=== PATIENT | male | born 1955 | race Caucasian/White ===

== ENCOUNTER → 2020-06-20 10:11 | Outpatient (BNVA) | payer MEDICARE, SELFPAY | PROVIDERS: PCP Internal Medicine; Visit Provider Urology | DX: N32.0 Bladder-neck obstruction (principal); R35.1 Nocturia; R39.12 Poor urinary stream | CPT/HCPCS: Q3014 ==

== ENCOUNTER → 2020-08-20 10:02 | Outpatient (BNVA) | payer MEDICARE, SELFPAY | PROVIDERS: PCP Internal Medicine; Visit Provider Urology | DX: R39.12 Poor urinary stream (principal); N32.0 Bladder-neck obstruction; R35.1 Nocturia | CPT/HCPCS: Q3014 ==

== ENCOUNTER 2020-11-14 10:37 | Outpatient (REF) | payer MEDICARE, SELFPAY ==
[2020-11-14 12:16] LABS: PSA,Total (Free>4and<10) 1.41 ng/mL (0.00-4.00)
== END 2020-11-14 10:38 | disposition home or self-care (01) ==
LOC: HO.LAB 10:37
PROVIDERS: PCP Internal Medicine; Visit Provider Urology
DX: Z12.5 Encounter for screening for malignant neoplasm of prostate (principal); N40.1 Benign prostatic hyperplasia with lower urinary tract symptoms; N32.0 Bladder-neck obstruction; N13.8 Other obstructive and reflux uropathy
CPT/HCPCS: 36415; 84153

== ENCOUNTER → 2020-11-20 10:05 | Outpatient (BNVA) | payer MEDICARE, SELFPAY | PROVIDERS: PCP Internal Medicine; Visit Provider Urology | DX: R39.12 Poor urinary stream (principal); R35.1 Nocturia; N32.0 Bladder-neck obstruction | CPT/HCPCS: 51798; 99212 ==

== ENCOUNTER → 2021-03-27 08:40 | Outpatient (BNVA) | payer MEDICARE, SELFPAY | PROVIDERS: PCP Internal Medicine; Visit Provider Urology | CPT/HCPCS: Q3014 ==

== ENCOUNTER 2021-04-28 06:22 | Day surgery (SDC) | payer MEDICARE, SELFPAY ==
[2021-04-22 11:15] VITALS: BMI 25.7
--- NOTE | 2021-04-25 12:09 | HO.ANESPROP2 ---
Documented by User: Marley Mohamud NP 04/25/21 12:09 HPI - Anesthesia Eval Consult details Narrative: 65yo M for Laser Ablation Prostate w/Green Light PMFSH Active Problems Active Problems: All Active Problems (Updated 04/22/21 @ 11:14 by Celine Omer, CLAUDETTE) Nocturia more than twice per night (Acute) Bladder outlet obstruction (Acute) Weak urinary stream (Acute) Past Medical History Medical History (Updated 04/22/21 @ 11:14 by Celine Omer, CLAUDETTE) Bladder outlet obstruction COVID-19 vaccine series completed Hx of fracture of tibia Hypothyroid Nocturia Sciatic nerve pain Tinnitus of right ear Torn rotator cuff Weak urinary stream Surgical History Surgical History (Updated 04/22/21 @ 11:11 by Celine Omer, CLAUDETTE) Hx of cholecystectomy Hx of colonoscopy Hx of hernia repair Hx of total knee replacement Social History Social History (Updated 04/22/21 @ 11:17 by Celine Omer RN) Alcohol intake: current Alcohol intake frequency: a few times a week Patient Tobacco Use Status: Former Tobacco user Quit Date: Are you DNR?: No Advance Directives: No Advance Directives Information Provided: Yes Advance Directives on File: No Meds Allergies Allergy/AdvReac Type Severity Reaction Status Date / Time No Known Allergies Allergy Verified 04/22/21 11:14 Home Medications Medication Instructions Recorded Confirmed Last Taken Type levothyroxine 50 mcg capsule 50 mcg PO DAILY 06/20/20 04/22/21 Unknown History acetaminophen 500 mg tablet 1,000 mg PO Q6H 08/20/20 04/22/21 Unknown History Ginkgo 04/22/21 Unknown History multivitamin 1 tab PO DAILY 04/22/21 04/22/21 Unknown History [id number]-cztk-jqzan-oreg-capryl 04/22/21 04/22/21 Unknown History Exam Exam Date and Time: April 25, 2021 1209 Height,Weight and Vital Signs: Height 5 ft 10.5 in Weight 82.554 kg Assessment and Plan Assessment Anesthesia Assessment: Chart Reviewed Documented by User: Deanne Campuzano MD 04/28/21 07:43 PMFSH Past Medical History Medical History (Updated 04/22/21 @ 11:14 by Celine Omer, CLAUDETTE) Bladder outlet obstruction COVID-19 vaccine series completed Hx of fracture of tibia Hypothyroid Nocturia Sciatic nerve pain Tinnitus of right ear Torn rotator cuff Weak urinary stream Family History Family history of problems with anesthesia: No Surgical History Surgical History (Updated 04/22/21 @ 11:11 by Celine Omer, CLAUDETTE) Hx of cholecystectomy Hx of colonoscopy Hx of hernia repair Hx of total knee replacement History of Problems with Anesthesia: No Social History Social History (Updated 04/22/21 @ 11:17 by Celine Omer RN) Alcohol intake: current Alcohol intake frequency: a few times a week Patient Tobacco Use Status: Former Tobacco user Quit Date: Are you DNR?: No Advance Directives: No Advance Directives Information Provided: Yes Advance Directives on File: No Meds Allergies Allergy/AdvReac Type Severity Reaction Status Date / Time No Known Allergies Allergy Verified 04/22/21 11:14 Home Medications Medication Instructions Recorded Confirmed Last Taken Type levothyroxine 50 mcg capsule 50 mcg PO DAILY 06/20/20 04/22/21 Unknown History acetaminophen 500 mg tablet 1,000 mg PO Q6H 08/20/20 04/22/21 Unknown History Ginkgo 04/22/21 Unknown History multivitamin 1 tab PO DAILY 04/22/21 04/22/21 Unknown History [id number]-[id number]-yzrah-oreg-capryl 04/22/21 04/22/21 Unknown History Exam Airway Mallampati Class: II (Caps laterally) TM Dist: >3cm Neck ROM: Full Heart: rrr Lungs: cta Assessment and Plan Assessment Anesthesia Assessment: Anesthesia Plan Discussed and Chart Reviewed Final Anesthetic Review Family History of Problems with Anesthesia: No History of Problems with Anesthesia: No NPO: Yes ASA Class: II Final Preanesthetic Review: No Changes in Pt Med Stat and Meds/Allgs Chart Reviewed Patient Risk: Intermediate Procedure Risk: Intermediate Anesthetic Plan Anesthetic Plan: GA Disposition: Standard PACU
[2021-04-28] VITALS (7 sets, daily range): BP systolic 102–127; BP diastolic 58–76; PULSE 51–68; RESP 16; TEMP 36.2–36.4; O2SAT 95–100
[2021-04-28] MEDS: Lactated Ringers 1,000 ML 100 ML IVCONT (06:46)
--- NOTE | 2021-04-28 07:38 | MHC.SHP ---
Pre-Procedural Eval Section A Date of Service: 04/28/21 The patient is an INPATIENT: No Changes since office visit: No Cold of Flu in the past 2 weeks, No New Medical Problems, No Changes in Medication and No Patient answered all questions The History & Physical has been completed within 30 days and I have reviewed it.: Yes Section B Chief Complaint: BPH Relevant Family History (Specify if Yes): No Relevant Social History: None Present Medications: see Short Stay Collaborative assessment Medical History: No relevant PMH History of Previous Operations: No relevant previous surgery Allergies: Allergies Allergy/AdvReac Type Severity Reaction Status Date / Time No Known Allergies Allergy Verified 04/22/21 11:14 Review of Systems Sugical H&P ROS: Negative: Constitution, Cardiovascular, Respiratory, Neurological, Psychiatric, Hem-Onc, Allergic/Immunologic, Gastrointestinal, Genitourinary, Musculoskeletal, Integumentary, Endocrine and Eyes/Ears/Nose/Throat Exam Surgical H&P Exam: Normal: HEENT, Normal: Heart, Normal: Lungs, Normal: Extremities, Normal: Abdomen, Normal: Skin and Normal: Neurological Plan Diagnosis/Plan: Unchanged (Greenlight laser prostatectomy) I have reviewed the history and physical and performed a pertinent physical examination on my patient. No changes have occurred unless specified.
--- NOTE | 2021-04-28 09:25 | P.OP_ITS ---
Operative Note Operative Note Date of Service: 04/28/21 Narrative: PreOperative Diagnosis: Bladder outlet obstruction Post Operative Diagnosis: Bladder outlet obstruction Procedure: GreenLight laser enucleation of the prostate Surgeon: Dr Yared Ricci Anesthesia: General Indications for procedure: History of bladder outlet obstruction. Treated with alpha-barabra and other medications. Still with symptoms. On cystoscopy in office has largemedian lobe.. Recommendation for prostate procedure with laser enucleation of prostate. It has been discussed. Focus was placed on development of retrograde examination which is a normal part of this procedure. Procedure: After informed consent was verified the patient was brought to the operating r oom and placed in a supine position. Anesthesia was administered per protocol. Patient was placed in modified dorsal lithotomy position and prepped and draped in a sterile fashion. Safety pause time-out was confirmed. Antibiotics have been given. Twenty-four Kosovan laser cystoscope was inserted per urethra. No abnormalities found the anterior posterior urethra. The bladder was filled on both ureteric orifices were seen in normal position away from our area of interest. Using a GreenLight laser settings of 80 w incisions were made at the 5 and 7 o'clock position. They were taken down and then laterally on each side. They were brought from the bladder neck down to the level of the veru. These defined the lateral aspects of the median lobe area. The median lobe was ablated and enucleated tissue removed using power settings up to 120 w. The median lobe was large and tissue required to be incised down the middle in order to release this completely. Once the median lobe area had been cleaned attention was directed to the lateral lobes. We started with the patient's left lateral lobe. Firstly the 05:00 o'clock groove was further developed. This was moved in the lateral position to undermine the tissue on the lateral side. Focus was then placed on the laser at the 1 o'clock position in developing a secondary groove down to the level of bladder fibers. The intervening tissue between these 2 grooves was removed with a combination of enucleation ablation working from the apex toward the bladder neck. A similar procedure was repeated on the patient's right-hand side. When this was completed debris and pieces of prostate removed from the bladder. Both ureteric orifices were reviewed again in shown to be patent in away from any areas of energy damage. The apical area was reviewed in any stray ooze was controlled. There was some nonspecific ooze from the prostate bed. A 22 Kosovan 30 cc balloon Pendleton catheter was placed over stylet into the bladder. Clear efflux was obtained on irrigation. 50 cc was placed in the balloon and gentle traction was placed. A snap was used to hold tension once the patient will be moved and transported. Once transportation its finish this novel be removed. A belladonna and opiate suppository was placed for postprocedure pain management. He tolerated procedure well was extubated in the operating and transferred in a stable condition to the recovery area. Total power 200 kilojoules. Laser times 30 minutes 48 seconds. Pathology: Prostate tissue Drains: Pendleton catheter
[2021-04-28] MEDS: Acetaminophen 325 MG TABLET 650 MG PO (09:52)
== END 2021-04-28 11:05 | disposition home or self-care (01) ==
PROVIDERS: PCP Internal Medicine; Visit Provider Urology
PROC: (CPT 52648; principal; 2021-04-28 08:10)
DX: N40.1 Benign prostatic hyperplasia with lower urinary tract symptoms (principal); N13.8 Other obstructive and reflux uropathy; R35.1 Nocturia; R39.12 Poor urinary stream; E03.9 Hypothyroidism, unspecified; Z79.899 Other long term (current) drug therapy; Z90.49 Acquired absence of other specified parts of digestive tract; Z87.891 Personal history of nicotine dependence
CPT/HCPCS: 52649; J1956; J2370; J2405; J3010

== ENCOUNTER → 2021-05-01 08:52 | Outpatient (BNVA) | payer MEDICARE, SELFPAY | PROVIDERS: PCP Internal Medicine; Visit Provider Urology | DX: N32.0 Bladder-neck obstruction (principal) | CPT/HCPCS: 51700; 51798 ==

== ENCOUNTER → 2021-06-20 11:36 | Outpatient (BNVA) | payer MEDICARE, SELFPAY | PROVIDERS: PCP Internal Medicine; Visit Provider Urology | DX: N32.0 Bladder-neck obstruction (principal); R39.12 Poor urinary stream; R33.9 Retention of urine, unspecified | CPT/HCPCS: 51798; 99212 ==

== ENCOUNTER 2021-12-01 11:20 | Outpatient (REF) | payer MEDICARE, SELFPAY ==
[2021-12-01 14:32] LABS: Prostate Specific Antigen 1.02 ng/mL (<0.05-4.0)
== END 2021-12-01 11:21 | disposition home or self-care (01) ==
LOC: HO.10HDL 11:20
PROVIDERS: Visit Provider Urology
DX: N40.1 Benign prostatic hyperplasia with lower urinary tract symptoms (principal); N13.8 Other obstructive and reflux uropathy; Z12.5 Encounter for screening for malignant neoplasm of prostate
CPT/HCPCS: 36415; 84153

== ENCOUNTER 2021-12-16 10:52 | Outpatient (AMB) | payer MEDICARE, SELFPAY ==
--- NOTE | 2021-12-15 14:33 | MHC.OFFVIS ---
Intake Intake Visit Reasons: 6 Month PSA(SET) Intake Note: Patient is present for PSA and PVR Follow Up Patient is currently on Finasteride and tamsulosin Post Void Residual Reports: 0ml Skid Wrapper Required: No Accompanied by: Self / Same As Patient Allergies No Known Allergies Allergy (Verified 12/02/22 15:12) HPI HPI Comments History of Present Illness Details Michelet is a pleasant male. He is a patient of Dr. Hearn. he seen for the following urologic conditions - bladder outlet obstruction - urinary retention PSA 1.0 Lower urinary tract symptom with UTI Follow-up appointment after GreenLight procedure Current visit is for - further symptom evaluation predominant obstructive Prior treatment treatment includes - alpha-barbara and finasteride - May 2021 GreenLight laser Prostate Symptom Score - 06/13 moderate Symptoms include - initial symptoms with weak stream, nocturia, incomplete bladder emptying Prior Prostate Score moderate PSA 11/11 - 1.4, 12/12 1.0 Prostate volume US 08/11 81 cc, PVR 390, 11/11 PVR 300 Testing at next visit will include - see in 6 months with PSA PFSH Medical History Bladder outlet obstruction COVID-19 vaccine series completed Hx of fracture of tibia Hypothyroid Nocturia Sciatic nerve pain Tinnitus of right ear Torn rotator cuff Weak urinary stream Surgical History Hx of cholecystectomy Hx of colonoscopy Hx of hernia repair Hx of total knee replacement Social History Household Members: Spouse Housing: House Do you presently have visiting nurse or other home services: No Alcohol intake: current Alcohol intake frequency: holidays/special occasions only Alcohol type: beer Patient Tobacco Use Status: Former Tobacco user Quit Date: Second Hand Smoke Exposure: No service: No Review of Systems Const Denies chills and Denies fever(s) Card Reports no additional complaints and Denies syncope Resp Denies cough GI Denies abdominal pain and Denies heartburn Reports as per HPI and Denies change in libido Neuro Denies syncope Psych Denies change in libido Endo Denies change in libido Physical Exam Const General: cooperative, healthy appearing, comfortable and no acute distress Orientation/consciousness: patient oriented x3 HEENT Face and sinus: Yes normal facial exam Mouth: moist mucous membranes Neck Neck: Yes normal visual inspection, Yes full ROM and Yes trachea midline Chest Chest palpation & inspection: normal inspection of the chest Resp Effort & Inspection: normal respiratory effort, able to speak in complete sentences and no respiratory distress GI Inspection: Yes normal to inspection Back/Spine/Pelvis Cervical Spine: normal cervical lordosis Thoracic/Lumbar Spine: thoracic and lumbar spine normal to inspection Skin General skin exam: no rashes or lesions noted Neuro General: patient oriented x3, gait normal, tone normal and moves all extremities Extrem General: Yes normal to inspection and Yes capillary refill normal Office Procedures Post Void Residual Post Residual Void Post Void Residual (PVR): 0 20251-Kkpc Void Residual by ultrasound Results AMB Urinalysis, Automated UA Leukoctes 0 Cal/uL Last Edit by [facility] on 12/16/21 11:07 UA Nitrite Negative Last Edit by [facility] on 12/16/21 11:07 UA Urobilinogen 0.2 mg/dL Last Edit by [facility] on 12/16/21 11:07 UA Protein 0 mg/dL Last Edit by [facility] on 12/16/21 11:07 UA pH 6.0 Last Edit by [facility] on 12/16/21 11:07 UA Blood 0 Zach/uL Last Edit by [facility] on 12/16/21 11:07 UA Specific Orange 1.025 Last Edit by [facility] on 12/16/21 11:07 UA Ketone Negative Last Edit by [facility] on 12/16/21 11:07 UA Bilirubin 0 mg/dL Last Edit by [facility] on 12/16/21 11:07 UA Glucose 0 mg/dL Last Edit by [facility] on 12/16/21 11:07 Results Reviewed Results Reviewed: Laboratory Last Values Urine pH (Auto) 6.0 12/16/21 11:06 Specific Orange (Auto) 1.025 12/16/21 11:06 Urine Protein (Auto) 0 mg/dL 12/16/21 11:06 Glucose (UA)(Auto) 0 mg/dL 12/16/21 11:06 Urine Ketones (Auto) Negative 12/16/21 11:06 Urine Blood (Auto) 0 Zach/uL 12/16/21 11:06 Urine Nitrite (Auto) Negative 12/16/21 11:06 Urine Bilirubin (Auto) 0 mg/dL 12/16/21 11:06 Urine Urobilinogen (Auto) 0.2 mg/dL 12/16/21 11:06 Leukocyte Esterase (Auto) 0 Cal/uL 12/16/21 11:06 Assessment & Plan Assessment & Plan (1) Erectile dysfunction: Code(s): N52.9 - Male erectile dysfunction, unspecified (2) Bladder outlet obstruction: Code(s): N32.0 - Bladder-neck obstruction Plan One year follow-up PVR Orders: Orders AMB Urinalysis Automated 12/16/21 Z13.9 - Encounter for screening, unspecified AMB Post Void Residual by ultrasound 12/16/21 R32 - Unspecified urinary incontinence, N32.0 - Bladder-neck obstruction Medications: New tadalafil as needed 10 mg PO ONCE PRN 30 tabs 0RF sexual activity 30 days N52.9 - Male erectile dysfunction, unspecified Patient Instructions: Imaging studies, laboratory and physical exam results were discussed and reviewed in detail. No major barriers to patient understanding were identified. An opportunity to ask questions regarding the treatment plan was provided. All questions were answered. The patient expressed understanding and agreement with the above treatment plan. The patient is aware they should contact our office by phone for worsening of their current condition or the appearance of new urologic symptoms. Compliance is encouraged with any medications and followup testing that is ordered. It is a privilege to participate in the urologic care of your patient. If you have any questions or concerns regarding treatment for the above conditions, or other urologic issues, please do not hesitate to contact me. The office telephone contact is [phone]. This note is constructed using voice recognition software. While every effort has been made to ensure accuracy graduate civil engineer errors may have been included. Yours sincerely, Dr Yared Ricci MD, [facility] - Urology Providers of Expert, Compassionate Care for the Genitourinary System Coding Level of Care Code Est Pt Level 3 (49300) Diagnoses Erectile dysfunction N52.9 Bladder outlet obstruction N32.0 CPT Codes Post Residual Void - PVR CPT Code: 70256-Whav Void Residual by ultrasound ([id number])
== END 2021-12-16 11:34 | disposition home or self-care (01) ==
LOC: HO.HUSH 10:52
PROVIDERS: PCP Internal Medicine; Visit Provider Urology
DX: N52.9 Male erectile dysfunction, unspecified (principal); N32.0 Bladder-neck obstruction
CPT/HCPCS: 99213

== ENCOUNTER → 2021-12-16 10:52 | Outpatient (BNVA) | payer MEDICARE, SELFPAY | PROVIDERS: PCP Internal Medicine; Visit Provider Urology | DX: N32.0 Bladder-neck obstruction (principal); N52.9 Male erectile dysfunction, unspecified | CPT/HCPCS: 51798; 99212 ==

== ENCOUNTER 2022-12-02 14:57 | Inpatient (IN) | payer MEDICARE, SELFPAY ==
--- NOTE | ~2022-12-02 | FL_ITS ---
EXAMINATION: XR FLUOROSCOPY WITH IMAGES CLINICAL INFORMATION: Possible fracture left hand. COMPARISON: 12/02/2022 TECHNIQUE: Fluoroscopy Supervised By: Dr. Sarah Simms. Fluoroscopy Time: 9.8 seconds. Cumulative Dose: 0.1981 mGy. DAP: 0.012 Gy-cm2. Images: 3. FINDINGS: Intraoperative imaging of the left hand performed with what appears to be manipulation of the second finger. FL/FL guidance in OR IMPRESSION: Intraoperative fluoroscopy for orthopedic procedure.
--- NOTE | ~2022-12-02 | XR_ITS ---
EXAMINATION: XR HAND, LEFT CLINICAL INFORMATION: Left hand pain and swelling for one week. COMPARISON: None available. TECHNIQUE: PA, lateral, and oblique views of the left hand. FINDINGS: Flexion of the digits limits evaluation of the phalanges. There is possible deformity in the proximal aspect of the middle phalanx of the second digit. The remainder of the digits appear intact. The metacarpals are intact with the carpal bones are normally aligned. Mild radiocarpal degenerative joint changes are seen. Moderate to severe soft tissue swelling is seen most pronounced in the second and third digits. XR/XR hand LT min 3V IMPRESSION: 1. Moderate to severe soft tissue swelling, most pronounced in the second and third digits. Possible deformity in the proximal aspect of the middle phalanx of the second digit. This could be projectional however, a nondisplaced fracture cannot be excluded. Correlate with physical exam. If pain persists or worsens, a CT scan may be needed to better evaluate these findings. 2. Mild radiocarpal degenerative joint changes suggesting osteoarthritis.
--- NOTE | 2022-12-02 15:11 | ED_ITS ---
HPI - General Adult General Chief complaint: Wound/Laceration Stated complaint: Infected hand wound Time Seen by Provider: 12/02/22 16:44 Source: patient Mode of arrival: ambulatory Limitations: no limitations History of Present Illness HPI narrative: This is a 67-year-old male history of erectile dysfunction, bladder outlet obstruction, presenting with concerns of infected left hand, patient reports 11/13/2022 patient had an accident where he cut his left hand with a table saw, at that time he had hand surgery at [facility] on November 15 by hand/plastics, he was placed on oral antibiotics X7 days, however despite this he feels as though infection is worsening, redness, pain, swelling and purulent discharge now from palm. Patient has also been utilizing occupational therapy, who saw his hand in were concerned for infection due to some purulence discharge that day saw during their examination, they sent a picture of this discharge, scented to patient's surgeon and they wanted patient evaluated in an emergency department for possible IV antibiotics. Patient denies fevers, chills, chest pain, shortness of breath, nausea, vomiting, numbness, tingling. Related Data Home Medications Medication Instructions Recorded Confirmed Ginkgo 1 tab PO DAILY 04/22/21 12/02/22 multivitamin 1 tab PO DAILY 04/22/21 12/02/22 zgtsoxz-aaog-rouig-oreg-capryl 1 tab PO DAILY 04/22/21 12/02/22 levothyroxine 50 mcg tablet 50 mcg PO DAILY 12/15/21 12/02/22 cholecalciferol (vitamin D3) 50 50 mcg PO DAILY 12/02/22 12/02/22 mcg (2,000 unit) capsule (Vitamin D3) ibuprofen 400 mg tablet 400 mg PO Q6H 12/02/22 12/02/22 omega-3s 300 wc-fxi-vto-other 1 cap PO DAILY 12/02/22 12/02/22 eoyvu4q-ybsx oil 1,000 mg capsule ([place]-3 Fish Oil) Allergies Allergy/AdvReac Type Severity Reaction Status Date / Time No Known Allergies Allergy Verified 12/02/22 15:12 Review of Systems Review of Systems: Constitutional : No Weight loss, No Fever, No Chills, No Fatigue, No Malaise ENT/Mouth : No sore throat, No Rhinorrhea Eyes: No Eye Pain, No Swelling, No Redness Cardiovascular : No Chest Pain, No SOB, No Dyspnea on Exertion, No Orthopnea, No Edema, No Palpitations Respiratory : No Cough, No Sputum, No Wheezing Gastrointestinal : No Nausea, No Vomiting, No Diarrhea, No Constipation, No abdominal Pain, No Hematochezia, No Melena Genitourinary : No Dysuria, No Urinary Frequency, No Hematuria, Musculoskeletal : No joint pain, No Myalgias, No Joint Swelling Skin : No Skin Lesions, No rash, + wound Neuro : No Weakness, No Numbness, No Dizziness, No Headache Psych : No Anxiety/Panic, No Depression All other systems reviewed and are negative Yes all other systems are reviewed and are negative [facility] Past Medical History Attestation statement: The following information was validated with the patient. Source: old records reviewed and nursing notes reviewed Medical History Bladder outlet obstruction COVID-19 vaccine series completed Hx of fracture of tibia Hypothyroid Nocturia Sciatic nerve pain Tinnitus of right ear Torn rotator cuff Weak urinary stream Surgical History Hx of cholecystectomy Hx of colonoscopy Hx of hernia repair Hx of total knee replacement Social History Social History Alcohol intake: current Alcohol intake frequency: a few times a week Patient Tobacco Use Status: Former Tobacco user Quit Date: Advance Directives Information Provided: No Physical Exam ED Vital Signs: Vital Signs - 24 hr 12/02/22 15:12 12/02/22 16:56 Temperature 97.8 F 98.0 F Pulse Rate 84 82 Respiratory Rate 16 16 Blood Pressure 132/77 135/68 Pulse Oximetry 95 98 Oxygen Delivery Method Room Air Room Air BMI result Body Mass Index 24.5 vss Appearance: Alert.? Oriented X3.? No acute distress.? Head: Normocephalic, atraumatic, no step-offs or deformities Eyes: Pupils equal, round and reactive to light.? ENT: Pharynx normal.? Neck: Normal inspection.? Neck supple.? CVS: Normal heart rate and rhythm.? Pulses normal.? Respiratory: No respiratory distress.? Breath sounds normal.? Abdomen: Soft and nontender.? Skin: Skin warm and dry.? Normal skin color.? Normal skin turgor.? + wound to left hand (iamge below) 2+ radial pulses normal cap refil to b/l UE digits. No w rist drop. Normal sensation distally. Extremities: No lower extremity edema.? No calf ttp. 5/5 strength to bilateral upper and lower extremities Back: No midline tenderness, no C-spine tenderness, full range of motion, no CVA tenderness bilaterally Neuro: Oriented X 3.? No motor deficit.? No sensory deficit. CN 2-12 intact Course Course Course Narrative: This is an RME: Additional HPI, ROS, PE not included below will be deferred to primary provider. Patient is a 67-year-old male presenting to the emergency department with infected wound to left hand. Patient injured his hand with a ta ble saw on 11/13, had surgery at [facility] on 11/15, and completed a 7-day course of antibiotics after that. Has been going to OT, went today, and was told to come to the ED for evaluation of possible infection. Denies any fevers. Reports that occupational therapist expressed purulent drainage today, sent a photo to the surgeon who referred patient to the ED. Plan: labs Reevaluation(s) Reevaluation #1: Spoke to patient's hand surgeon from [facility], recommends [facility] area and then trying to express purulence from the affected hand. States he can be reached at any time. Patient's with contact information. Patient's CBC appears to be within normal limits. Chemistry unremarkable. ESR and CRP elevated likely secondary to healing/postoperative state. X-ray of the hand ordered and shows moderate to severe soft tissue swelling most pronounced month 2nd and 3rd digits. Possible deformity of the proximal aspect of the middle phalanx of the 2nd digit which could be a nondisplaced fracture. Mild radiocarpal degenerative joint changes suggesting osteoarthritis. Patient was given vancomycin and Zosyn . Plan is for hospital admission. Hospitalist accepts admission Time: 18:17 Medical Decision Making Medical Decision Making [facility] Narrative: [id number] 67-year-old male presents with concerns of infection to left hand worsening since late October. Physical exam significant for wound to left hand appears infected, please refer to images. Likely cellulitis/infected wound. Unlikely osteomyelitis, threatened limb, gangrenous infection. No signs of flexor tenosynovitis at this time Plan at this time labs, imaging, IV antibiotics. Likely hospital admission Differential Diagnosis Differential Diagnoses: The differential diagnosis associated with the presentation includes Likely cellulitis/infected wound. Unlikely osteomyelitis, threatened limb, gangrenous infection. No signs of flexor tenosynovitis at this time Admission/Observation Consideration of admission/observation: Escalation of care including admission/observation considered Likely hospital admission Consult Healthcare Provider Management of the patient was discussed with: Hospitalist and [employer] (p atkerrie hand surgeon ) Lab Data MDM Lab Attestation statement: I reviewed the patient's lab results. 12/02/22 15:21 12/02/22 15:21 Labs: Lab Results 12/02/22 12/02/22 12/02/22 Range/Units 15:21 15:21 17:16 WBC 8.9 (4.8-10.8) X10*3/uL RBC 4.35 L (4.60-5.80) X10*6/uL Hgb 13.3 L (14.0-18.0) g/dl Hct 39.6 L (42.0-52.0) % MCV 91.0 (80.0-98.0) fL MCH 30.6 (27.0-33.0) pg MCHC 33.6 (31.0-36.0) g/dl RDW 11.9 (11.0-16.0) % Plt Count 450 H (160-400) X10*3/uL MPV 8.3 L (9.4-12.4) fL Immature Gran % (Auto) 0.3 (0.0-0.4) % Neut % (Auto) 71.9 (45-73) % Lymph % (Auto) 17.7 L (20-40) % [place] % (Auto) 8.4 (2-11) % Eos % (Auto) 0.9 (0-4) % Baso % (Auto) 0.8 (0-2) % Lymph # (Auto) 1.6 (1.2-4.9) X10*3/uL [place] # (Auto) 0.8 (0.1-1.2) X10*3/uL Eos # (Auto) 0.1 (0.0-0.4) X10*3/uL Baso # (Auto) 0.1 (0.0-0.2) X10*3/uL Abs Immat Gran (auto) 0.03 (0.00-0.03) X10*3/uL Absolute Neuts (auto) 6.4 (2.0-8.3) x10*3/uL Absolute Nucleated RBC 0.000 (0.0-0.012) X10*3/uL Nucleated RBC % (auto) 0.0 (0.0-0.2) /100WBC ESR 79 H (0-15) MM/HR Sodium 137 (135-145) mmol/L Potassium 4.1 (3.3-5.1) mmol/L Chloride 103 (96-108) mmol/L Carbon Dioxide 24 (22-29) mmol/L Anion Gap 14 (12-20) BUN 16 (9-16) mg/dL Creatinine 0.77 (0.5-1.4) mg/dL Estim Creat Clear Calc 93.4 Estimated GFR > 60 Random Glucose 91 (60-115) mg/dL Lactic Acid (0.5-2.0) mmol/L Calcium 9.9 (8.4-10.2) mg/dL C-Reactive Protein (< or = 0.50) mg/dL 12/02/22 12/02/22 Range/Units 17:16 17:16 WBC (4.8-10.8) X10*3/uL RBC (4.60-5.80) X10*6/uL Hgb (14.0-18.0) g/dl Hct (42.0-52.0) % MCV (80.0-98.0) fL MCH (27.0-33.0) pg MCHC (31.0-36.0) g/dl RDW (11.0-16.0) % Plt Count (160-400) X10*3/uL MPV (9.4-12.4) fL Immature Gran % (Auto) (0.0-0.4) % Neut % (Auto) (45-73) % Lymph % (Auto) (20-40) % [place] % (Auto) (2-11) % Eos % (Auto) (0-4) % Baso % (Auto) (0-2) % Lymph # (Auto) (1.2-4.9) X10*3/uL [place] # (Auto) (0.1-1.2) X10*3/uL Eos # (Auto) (0.0-0.4) X10*3/uL Baso # (Auto) (0.0-0.2) X10*3/uL Abs Immat Gran (auto) (0.00-0.03) X10*3/uL Absolute Neuts (auto) (2.0-8.3) x10*3/uL Absolute Nucleated RBC (0.0-0.012) X10*3/uL Nucleated RBC % (auto) (0.0-0.2) /100WBC ESR (0-15) MM/HR Sodium (135-145) mmol/L Potassium (3.3-5.1) mmol/L Chloride (96-108) mmol/L Carbon Dioxide (22-29) mmol/L Anion Gap (12-20) BUN (9-16) mg/dL Creatinine (0.5-1.4) mg/dL Estim Creat Clear Calc Estimated GFR Random Glucose (60-115) mg/dL Lactic Acid 1.6 (0.5-2.0) mmol/L Calcium (8.4-10.2) mg/dL C-Reactive Protein 3.20 H (< or = 0.50) mg/dL Independent Interpretation I performed an independent interpretation of an: Plain X-Ray (XR/XR hand LT min 3V IMPRESSION: 1. Moderate to severe soft tissue swelling, most pronounced in the second and third digits. Possible deformity in the proximal aspect of the middle phalanx of the second digit. This could be projectional however, a nondisplaced fracture cannot be excluded. Correlate) Radiology Impression Discussion of test interpretation with radiology: I have reviewed the radiologist's reading. Core Measures AMI core measures followed: Yes Measure exclusions: not indicated Critical Care Time Critical Care Time Critical Care Time: Yes Total Critical Care Time: 35 Attestation: I attest to this time spent taking care of the patient, obtaining history, physical, reviewing labs, imaging, speaking to my attending, speaking to specialist. Discharge Plan Discharge Clinical Impression: Infection of left hand Patient Disposition: Admitted As Inpatient
[2022-12-02 15:12] VITALS: BP 132/77; PULSE 84; RESP 16; TEMP 36.6; O2SAT 95; BMI 24.5
[2022-12-02 15:25] LABS: MANUAL DIFF FLAG NO
[2022-12-02 15:27] LABS: Basophils Absolute Auto 0.1 X10*3/uL (0.0-0.2); Basophils Percent Auto 0.8 % (0-2); Eosinophils Absolute Auto 0.1 X10*3/uL (0.0-0.4); Eosinophils Percent Auto 0.9 % (0-4); Hematocrit 39.6 % (42.0-52.0); Hemoglobin 13.3 g/dl (14.0-18.0); Imm Gran Abs Auto 0.03 X10*3/uL (0.00-0.03); Imm Gran Pct Auto 0.3 % (0.0-0.4); Lymphocytes Absolute Auto 1.6 X10*3/uL (1.2-4.9); Lymphocytes Percent Auto 17.7 % (20-40); Mean Corpuscular HGB Conc 33.6 g/dl (31.0-36.0); Mean Corpuscular Hemoglobin 30.6 pg (27.0-33.0); Mean Platelet Volume 8.3 fL (9.4-12.4); Monocytes Absolute Auto 0.8 X10*3/uL (0.1-1.2); Monocytes Percent Auto 8.4 % (2-11); Neutrophils Absolute Auto 6.4 x10*3/uL (2.0-8.3); Neutrophils Percent Auto 71.9 % (45-73); Platelet Count 450 X10*3/uL (160-400); Red Blood Count 4.35 X10*6/uL (4.60-5.80); Red Cell Distribution Width 11.9 % (11.0-16.0); White Blood Count 8.9 X10*3/uL (4.8-10.8)
[2022-12-02 15:59] LABS: Anion Gap 14 (12-20); Blood Urea Nitrogen 16 mg/dL (9-16); Calcium 9.9 mg/dL (8.4-10.2); Carbon Dioxide 24 mmol/L (22-29); Chloride 103 mmol/L (96-108); Creatinine Clr Calc Pharmacy 93.4; Estimated Glomerular Filt Rate > 60; Glucose Random 91 mg/dL (60-115); Potassium 4.1 mmol/L (3.3-5.1); Sodium 137 mmol/L (135-145)
[2022-12-02 16:56] VITALS: BP 135/68; PULSE 82; RESP 16; TEMP 36.7; O2SAT 98
--- NOTE | 2022-12-02 17:19 | MHC.EDTECH ---
PATIENT BLOOD DRAWN ,LACTIC ACID AND 1ST SETS OF BLOOD CULTURE DRAWN AND SENT TO LAB ,VITALS SIGN TAKEN ,PATIENT WENT TO XRAY .
[2022-12-02 17:35] LABS: Lactic Acid 1.6 mmol/L (0.5-2.0)
[2022-12-02 18:00] VITALS: BP 124/67; PULSE 78; RESP 16; TEMP 37.1; O2SAT 98
--- NOTE | 2022-12-02 18:00 | PHA.MEDREC ---
Pharmacy Consult ? Medication Reconciliation Pharmacy has completed the medication reconciliation. Spoke with patient and . Confirmed all his medications.
[2022-12-02 18:13] LABS: Erythrocyte Sedimentation Rate 79 MM/HR (0-15)
[2022-12-02] MEDS: Piperacillin Sodium/Tazobactam 3.375 GM in 0.9 % Sodium Chloride 50 ML IV (18:29)
[2022-12-02] MEDS: vancomycin/NS 2,000 MG/500 ML PLAST..BAG 250 MG IV (18:34)
--- NOTE | 2022-12-02 18:39 | P.HPHOSP_ITS ---
History of Present Illness Date of Service: 12/02/22 Attending physician on admission: sAhutosh Cantu Chief Complaint: Left hand reddness, swelling Pt is a 67-year-old male with a PMH significant for hypothyroidism and prostatectomy who presents to the ED with?left hand redness, swelling, and purulent drainage since earlier in the week. Patient originally injured his hand on 11/13/2021 when he cut his hand on a table saw while working at his house on [facility]. Patient initially went to an urgent care clinic but was referred to [facility] where he had hand surgery on 11/15/[address] Binu Chase ([phone]). Patient was then discharged home on 7 days of oral antibiotics. Patient states his hand was doing well up until the beginning of this week when his occupational therapist became worried about the swelling and redness. And continued to deteriorate and began seeping purulent discharge, which prompted his visit today. Patient states that his hand is slightly numb and painful, rates it a 3/10. Denies systemic symptoms: No fever, chills, nausea, vomiting. Denies chest pain/pressure, palpitations. No shortness of breath. Denies abdominal pain. In the ED patient was afebrile, and hemodynamically stable. Labs were significant for ESR 79, and C-reactive protein of 3.20. H&H stable at 13 0.3/39.6. No leukocytosis. Electrolytes WNL. Kidney function WNL. Left hand X-ray showed moderate to severe soft tissue swelling, most pronounced in the 2nd and 3rd digits with possible deformity in the proximal aspect of middle phalanx of 2nd digit, possibly suggestive of nondisplaced fracture. Emergency department spoke to patient's hand surgeon at [facility] who recommended icing the area than trying to express any purulence from the affected hand. Pt was treated with vanc and Zosyn and will be admitted to the hospital for treatment of left hand cellulitis with IV antibiotics and orthopedic consult.. Review of Systems Review of Systems: Left hand swelling, redness, purulent discharge Denies fever, chills, nausea, vomiting No chest pain/pressure, palpitations Denies abdominal pain No shortness of breath Yes all other systems are reviewed and are negative PMFSH Medical History Bladder outlet obstruction COVID-19 vaccine series completed Hx of fracture of tibia Hypothyroid Nocturia Sciatic nerve pain Tinnitus of right ear Torn rotator cuff Weak urinary stream Surgical History Hx of cholecystectomy Hx of colonoscopy Hx of hernia repair Hx of total knee replacement Social History Household Members: Spouse Housing: House Do you presently have visiting nurse or other home services: No Alcohol intake: current Alcohol intake frequency: a few times a week Alcohol type: beer Patient Tobacco Use Status: Former Tobacco user Quit Date: service: No Meds Allergies Allergy/AdvReac Type Severity Reaction Status Date / Time No Known Allergies Allergy Verified 12/02/22 15:12 Active Medications: Current Medications Vancomycin HCl (Vancomycin/Ns) 2,000 mg in 500 mls @ 250 mls/hr IV ONCE ONE Stop: 12/02/22 19:06 Last Admin: 12/02/22 18:34 Dose: 250 mls/hr Pharmacy Consult (Consult Rx Perform Med Rec) 1 each MISCELLANE ONCE PRN PRN Reason: Consult order Home Medications Medication Instructions Recorded Confirmed Last Taken Type Ginkgo 1 tab PO DAILY 04/22/21 12/02/22 Unknown History multivitamin 1 tab PO DAILY 04/22/21 12/02/22 Unknown History jugktms-oftn-cufqh-oreg-capryl 1 tab PO DAILY 04/22/21 12/02/22 Unknown History levothyroxine 50 mcg tablet 50 mcg PO DAILY 12/15/21 12/02/22 12/02/22 History cholecalciferol (vitamin D3) 50 50 mcg PO DAILY 12/02/22 12/02/22 Unknown History mcg (2,000 unit) capsule (Vitamin D3) ibuprofen 400 mg tablet 400 mg PO Q6H 12/02/22 12/02/22 12/02/22 History omega-3s 300 ky-qxq-qjm-other 1 cap PO DAILY 12/02/22 12/02/22 Unknown History gdape2x-nhdn oil 1,000 mg capsule ([place]-3 Fish Oil) Physical Exam Vital Signs and Narrative: Vital Signs: Last Vital Signs Temp 98.8 F 12/02/22 18:00 Pulse 78 12/02/22 18:00 Resp 16 12/02/22 18:00 BP 124/67 12/02/22 18:00 Pulse Ox 98 12/02/22 18:00 O2 Del Method Room Air 12/02/22 18:00 BMI result Body Mass Index 24.5 Constitutional: Alert, in no acute distress. Mental Status: Oriented to person, place and time. Eyes: Pupils are equal, round, and reactive to light. Ear, Nose, and Throat: Oropharynx clear, mucous membranes moist. Ears and nose without deformities. Trachea midline. Respiratory: Clear to auscultation bilaterally. No wheezing, rales, or rhonchi. Cardiovascular: S1, S2 regular. No murmurs, rubs, or gallops. Gastrointestinal: Abdomen soft, non-tender, non-distended. Normal bowel sounds. Neurologic: Cranial nerves II-XII are grossly intact bilaterally. No focal neurological deficits. Moves all extremities spontaneously. Skin: No rashes or lesions noted. Musculoskeletal: No cyanosis or clubbing. Extremities: No edema. Swelling, erythema, purulent discharge from the wounds on palmar aspect of left hand. See pictures below. Psychiatric: Normal mood and affect. Results Labs 12/02/22 15:21 12/02/22 15:21 Labs: Laboratory Results - last 24 hr 12/02/22 12/02/22 12/02/22 15:21 15:21 17:16 MCV 91.0 MCH 30.6 MCHC 33.6 RDW 11.9 Plt Count 450 H MPV 8.3 L Immature Gran % (Auto) 0.3 Neut % (Auto) 71.9 Lymph % (Auto) 17.7 L [place] % (Auto) 8.4 Eos % (Auto) 0.9 Baso % (Auto) 0.8 Lymph # (Auto) 1.6 [place] # (Auto) 0.8 Eos # (Auto) 0.1 Baso # (Auto) 0.1 Abs Immat Gran (auto) 0.03 Absolute Neuts (auto) 6.4 Absolute Nucleated RBC 0.000 Nucleated RBC % (auto) 0.0 ESR 79 H Anion Gap 14 Estim Creat Clear Calc 93.4 Estimated GFR > 60 Random Glucose 91 Lactic Acid Calcium 9.9 C-Reactive Protein 12/02/22 12/02/22 17:16 17:16 MCV MCH MCHC RDW Plt Count MPV Immature Gran % (Auto) Neut % (Auto) Lymph % (Auto) [place] % (Auto) Eos % (Auto) Baso % (Auto) Lymph # (Auto) [place] # (Auto) Eos # (Auto) Baso # (Auto) Abs Immat Gran (auto) Absolute Neuts (auto) Absolute Nucleated RBC Nucleated RBC % (auto) ESR Anion Gap Estim Creat Clear Calc Estimated GFR Random Glucose Lactic Acid 1.6 Calcium C-Reactive Protein 3.20 H Imaging Radiologist's Impressions: Impressions Hand X-Ray 12/02/22 17:21 IMPRESSION: 1. Moderate to severe soft tissue swelling, most pronounced in the second and third digits. Possible deformity in the proximal aspect of the middle phalanx of the second digit. This could be projectional however, a nondisplaced fracture cannot be excluded. Correlate with physical exam. If pain persists or worsens, a CT scan may be needed to better evaluate these findings. 2. Mild radiocarpal degenerative joint changes suggesting osteoarthritis. Assessment and Plan (1) Infection of left hand: Status: Acute Plan Pt is a 67-year-old male with a PMH significant for hypothyroidism and prostatectomy who presents to the ED with?left hand redness, swelling, and purulent drainage since earlier in the week. Patient originally injured his hand on 11/13/2021 when he cut his hand on a table saw while working at his house on [facility]. Patient initially went to an urgent care clinic but was referred t o [facility] where he had hand surgery on 11/15/[address] Binu Chase ([phone]). Pt will be admitted to the hospital for treatment of left hand cellulitis with IV antibiotics and orthopedic consult. Left hand cellulitis Patient s/p hand surgery at [facility] on 11/15/2022, now with swelling, erythema, purulent discharge Will be given vancomycin and Zosyn, started on 12/02/2022 Patient does not meet sepsis criteria Orthopedic consult Patient be made NPO after midnight in anticipation of possible surgical intervention tomorrow Follow cultures Hypothyroidism Continue levothyroxine Full Code Attending:?Dr. Cantu DVT Prophylaxis: Pneumatic boots Pt will require a hospitalization of at least two nights for treatment of?left hand cellulitis status post hand surgery with IV antibiotics and surgical consult possible surgical intervention. Time Spent With Patient Time: Total time managing care of this patient today ____ minutes. Quality Stroke Does the patient have a stroke diagnosis?: No VTE Prior VTE?: No VTE Risk Level:: Medical - moderate - high VTE Device Contraindication: N/A - Device Ordered VTE Drug Contraindication: Treatment Not Indicated
[2022-12-02 20:00] VITALS: BP 119/75; PULSE 73; RESP 16; TEMP 37.1; O2SAT 98
--- NOTE | 2022-12-02 20:09 | PHA.PROG ---
Admission Date/Time: December 02, 2022 19:12 Indication:SKIN Weight in k.564 kg Adjusted body weight in Kg: [place] body weight in Kg: Obesity Dosing Indication % IBW: Serum Creatinine - Last 168 Hours 12/02/22 15:21 Creatinine 0.77 Estimated CrCl and GFR - Last 168 Hours 12/02/22 15:21 Estim Creat Clear Calc 93.4 Estimated GFR > 60 Vancomycin Loading Dose: 2000MG Current Vancomycin Dosing Regimen: 1000MG Q12H Vancomycin Monitoring using AUC goal of 400 - 600 range with trough as surrogate marker: AUC 514, GRJTZX36.2 Date and Time for next Vancomycin Level to be drawn: RANDOM 12/03 @1600 Pharmacist Comments on Vancomycin Plan: Vancomycin dosing will take advantage of Flexis as a clinical decision support tool that uses Bayesian modeling to calculate individual patient's pharmacokinetic parameters and forecast the patient's drug concentration time course with the target goal AUC 24 range of 400 - 600 mg/L/hr.
--- NOTE | 2022-12-02 20:20 | MHC.EDTECH ---
patient has a tuna fish sandwich a pudding and a chirag joie for snack .
--- NOTE | 2022-12-02 20:24 | PC.NURSE ---
attempt report x1 to floor- tx'd to nursing station- no answer. keri texting rn to receive pt for report
[2022-12-02] MEDS: Ibuprofen 400 MG TABLET PO (20:35)
[2022-12-02 21:30] VITALS: BMI 24.7
[2022-12-02 21:37] VITALS: BP 145/77; PULSE 80; RESP 17; TEMP 37.1; O2SAT 98
[2022-12-03] VITALS (15 sets, daily range): BP systolic 94–140; BP diastolic 50–74; PULSE 70–95; RESP 15–20; TEMP 36.1–36.9; O2SAT 93–99
[2022-12-03] MEDS: Piperacillin Sodium/Tazobactam 3.375 GM in 0.9 % Sodium Chloride 50 ML IV ×5 (01:26→23:22)
[2022-12-03] MEDS: 0.9 % Sodium Chloride Flush 3 ML SYRINGE IVFLUSH ×3 (01:26→17:41)
[2022-12-03] MEDS: Lactated Ringers 1,000 ML 80 ML IVCONT ×2 (01:26→23:23)
[2022-12-03] MEDS: vancomycin HCL 1,000 MG in 0.9 % Sodium Chloride 250 ML 270 MG IV ×2 (05:25→17:47)
[2022-12-03] MEDS: Levothyroxine Sodium 50 MCG TABLET PO (06:44)
[2022-12-03 06:59] LABS: Hemoglobin 12.6 g/dl (14.0-18.0); Mean Corpuscular HGB Conc 34.1 g/dl (31.0-36.0); Mean Corpuscular Hemoglobin 31.2 pg (27.0-33.0); Mean Corpuscular Volume 91.6 fL (80.0-98.0); Mean Platelet Volume 8.9 fL (9.4-12.4); Platelet Count 381 X10*3/uL (160-400); Red Blood Count 4.04 X10*6/uL (4.60-5.80); Red Cell Distribution Width 11.9 % (11.0-16.0)
[2022-12-03 07:31] LABS: Creatinine Clr Calc Pharmacy 97.2; Estimated Glomerular Filt Rate > 60
[2022-12-03 07:41] LABS: Anion Gap 11 (12-20); Blood Urea Nitrogen 12 mg/dL (9-16); Calcium 9.2 mg/dL (8.4-10.2); Carbon Dioxide 24 mmol/L (22-29); Chloride 107 mmol/L (96-108); Creatinine Clr Calc Pharmacy 94.7; Estimated Glomerular Filt Rate > 60; Glucose Random 91 mg/dL (60-115); Potassium 4.3 mmol/L (3.3-5.1); Sodium 138 mmol/L (135-145)
[2022-12-03] MEDS: Ibuprofen 400 MG TABLET PO ×4 (07:57→23:22)
[2022-12-03] MEDS: Cholecalciferol (Vitamin D3) 25 MCG TABLET 50 MCG PO (07:57)
[2022-12-03] MEDS: Multivitamin TABLET 1 TAB PO (07:57)
--- NOTE | 2022-12-03 08:49 | MHC.CM.PN ---
CM met with Patient at bedside and addressed IMM with him, providing Patient with the original and placing a copy on the chart. Patient lives in a house with his /HCP and home vs home with new vna is the tentative plan. CM has initiated and will follow for dc planning. Patient is raysa lazaro'janett and his PCP is Dr. Mohamud Hearn.
--- NOTE | 2022-12-03 12:21 | P.PNIM_ITS ---
Subjective Subjective Date of Service: 12/03/22 Interval History: Seen and evaluated this morning Feels better overall Denies any fever or chills Plan for surgical intervention this afternoon No other overnight events Review of Systems Review of Systems: Yes all other systems are reviewed and are negative Physical Exam Vital Signs: Vital Signs: Last Vital Signs Temp 96.9 F 12/03/22 07:43 Pulse 70 12/03/22 07:43 Resp 20 12/03/22 07:43 BP 107/61 12/03/22 07:43 Pulse Ox 97 12/03/22 07:43 O2 Del Method Room Air 12/03/22 07:43 BMI result Body Mass Index 24.7 Const: Other: Constitutional : Awake, interactive, not in distress Neck : Normal inspection, Supple Cardiovascular : RRR, no JVP, no lower extremity edema Respiratory : good bilateral air entry, no crackles, wheezes or rhonchi Gastrointestinal: soft, lax, Normal bowel sounds, Non tender Skin : Warm, Dry, Left hand in dressing Neurological : Alert & oriented x3, No focal deficit Objective Data Active Medications Acetaminophen (Acetaminophen 325 Mg Tablet) 650 mg PO Q6H PRN PRN Reason: Pain, Mild (Pain Scale 1-3) Docusate Sodium (Docusate Sodium 100 Mg Capsule) 100 mg PO DAILY PRN PRN Reason: Constipation Lactated Ringer's (Lr) 1,000 mls @ 80 mls/hr IVCONT .[id number] [facility] Last Infusion: 12/03/22 12:19 Dose: 0 mls/hr Documented By: JESSI Piperacillin Sod/Tazobactam (Sod 3.375 gm/ Sodium Chloride) 50 mls @ 100 mls/hr IV Q6H [facility] Last Admin: 12/03/22 12:12 Dose: 100 mls/hr Documented By: JESSI Vancomycin HCl 1,000 mg/ (Sodium Chloride) 270 mls @ 270 mls/hr IV Q12H [facility] Last Infusion: 12/03/22 06:57 Dose: 0 mls/hr Documented By: DEXTER Ibuprofen (Ibuprofen 400 Mg Tablet) 400 mg PO QID [facility] Last Admin: 12/03/22 12:10 Dose: 400 mg Documented By: JESSI Levothyroxine Sodium (Levothyroxine Sodium 50 Mcg Tablet) 50 mcg PO DAILY@0600 [facility] Last Admin: 12/03/22 06:44 Dose: 50 mcg Documented By: DEXTER Multivitamins/Vitamin C (Multivitamin Tablet) 1 tab PO DAILY [facility] Last Admin: 12/03/22 07:57 Dose: 1 tab Documented By: JESSI Ondansetron HCl (Ondansetron Hcl 4 Mg/2 Ml Vial) 4 mg IVPUSH Q8H PRN PRN Reason: Nausea and Vomiting Pharmacy Consult (Consult Rx Perform Med Rec) 1 each MISCELLANE ONCE PRN PRN Reason: Consult order Pharmacy Consult (Consult Rx Vancomycin Dosing) 1 each MISCELLANE DAILY PRN PRN Reason: Consult order Sodium Chloride (0.9 % Sodium Chloride Flush 3 Ml Syringe) 3 ml IVFLUSH QSHIFT [facility] Last Admin: 12/03/22 07:58 Dose: 3 ml Documented By: JESSI Vitamin D (Cholecalciferol (Vitamin D3) 25 Mcg Tablet) 50 mcg PO DAILY [facility] Last Admin: 12/03/22 07:57 Dose: 50 mcg Documented By: JESSI Labs 12/03/22 06:15 12/03/22 06:15 Labs: Laboratory Results - last 24 hr 12/02/22 12/02/22 12/02/22 15:21 15:21 17:16 MCV 91.0 MCH 30.6 MCHC 33.6 RDW 11.9 Plt Count 450 H MPV 8.3 L Immature Gran % (Auto) 0.3 Neut % (Auto) 71.9 Lymph % (Auto) 17.7 L [place] % (Auto) 8.4 Eos % (Auto) 0.9 Baso % (Auto) 0.8 Lymph # (Auto) 1.6 [place] # (Auto) 0.8 Eos # (Auto) 0.1 Baso # (Auto) 0.1 Abs Immat Gran (auto) 0.03 Absolute Neuts (auto) 6.4 Absolute Nucleated RBC 0.000 Nucleated RBC % (auto) 0.0 ESR 79 H Anion Gap 14 Estim Creat Clear Calc 93.4 Estimated GFR > 60 Random Glucose 91 Lactic Acid Calcium 9.9 C-Reactive Protein 12/02/22 12/02/22 12/03/22 17:16 17:16 06:15 MCV 91.6 MCH 31.2 MCHC 34.1 RDW 11.9 Plt Count 381 MPV 8.9 L Immature Gran % (Auto) Neut % (Auto) Lymph % (Auto) [place] % (Auto) Eos % (Auto) Baso % (Auto) Lymph # (Auto) [place] # (Auto) Eos # (Auto) Baso # (Auto) Abs Immat Gran (auto) Absolute Neuts (auto) Absolute Nucleated RBC 0.000 Nucleated RBC % (auto) 0.0 ESR Anion Gap Estim Creat Clear Calc Estimated GFR Random Glucose Lactic Acid 1.6 Calcium C-Reactive Protein 3.20 H 12/03/22 12/03/22 06:15 06:15 MCV MCH MCHC RDW Plt Count MPV Immature Gran % (Auto) Neut % (Auto) Lymph % (Auto) [place] % (Auto) Eos % (Auto) Baso % (Auto) Lymph # (Auto) [place] # (Auto) Eos # (Auto) Baso # (Auto) Abs Immat Gran (auto) Absolute Neuts (auto) Absolute Nucleated RBC Nucleated RBC % (auto) ESR Anion Gap 11 L Estim Creat Clear Calc 94.7 97.2 Estimated GFR > 60 > 60 Random Glucose 91 Lactic Acid Calcium 9.2 D C-Reactive Protein Assessment and Plan (1) Infection of left hand: Status: Acute Plan Pt is a 67-year-old male with a PMH significant for hypothyroidism and prostatectomy who presents to the ED with?left hand redness, swelling, and purulent drainage since earlier in the week. Left hand cellulitis Not septic Continue vancomycin and Zosyn, started on 12/02/2022 Orthopedic procedure this afternoon NPO after midnight Follow cultures Follow Vanco trough Hypothyroidism Continue levothyroxine Full Code DVT Prophylaxis: Pneumatic boots Pt will require a hospitalization of at least two nights for treatment of?left hand cellulitis status post hand surgery with IV antibiotics and surgical consult possible surgical intervention. Time Spent With Patient Time: Total time managing care of this patient today ____ minutes. Quality Stroke Does the patient have a stroke diagnosis?: No VTE Prior VTE?: No VTE Risk Level:: Medical - moderate - high VTE Device Contraindication: N/A - Device Ordered VTE Drug Contraindication: Treatment Not Indicated
--- NOTE | 2022-12-03 12:53 | PC.NURSE ---
patient IV #20 to left forearm, removed and intact. pt tolerated well. new IV placed #20 right hand. pt tolerated well.
--- NOTE | 2022-12-03 13:00 | P.CONAN_ITS ---
[facility] Active Problems Active Problems: All Active Problems (Updated 12/02/22 @ 16:49 by CATRACHO Landeros) Infection of left hand (Acute) Erectile dysfunction (Acute) Nocturia more than twice per night (Acute) Bladder outlet obstruction (Acute) Weak urinary stream (Acute) Past Medical History Medical History Bladder outlet obstruction COVID-19 vaccine series completed Hx of fracture of tibia Hypothyroid Nocturia Sciatic nerve pain Tinnitus of right ear Torn rotator cuff Weak urinary stream Family History Family history of problems with anesthesia: No Surgical History Surgical History Hx of cholecystectomy Hx of colonoscopy Hx of hernia repair Hx of total knee replacement History of Problems with Anesthesia: No Social History Social History Household Members: Spouse Housing: House Do you presently have visiting nurse or other home services: No Alcohol intake: current Alcohol intake frequency: holidays/special occasions only Alcohol type: beer Patient Tobacco Use Status: Former Tobacco user Quit Date: Second Hand Smoke Exposure: No service: No Meds Allergies Allergy/AdvReac Type Severity Reaction Status Date / Time No Known Allergies Allergy Verified 12/02/22 15:12 Active Medications: Current Medications Acetaminophen (Acetaminophen 325 Mg Tablet) 650 mg PO Q6H PRN PRN Reason: Pain, Mild (Pain Scale 1-3) Docusate Sodium (Docusate Sodium 100 Mg Capsule) 100 mg PO DAILY PRN PRN Reason: Constipation Lactated Ringer's (Lr) 1,000 mls @ 80 mls/hr IVCONT .[id number] Last Infusion: 12/03/22 12:19 Dose: 0 mls/hr Piperacillin Sod/Tazobactam (Sod 3.375 gm/ Sodium Chloride) 50 mls @ 100 mls/hr IV Q6H [facility] Last Infusion: 12/03/22 12:36 Dose: 0 mls/hr Vancomycin HCl 1,000 mg/ (Sodium Chloride) 270 mls @ 270 mls/hr IV Q12H [facility] Last Infusion: 12/03/22 06:57 Dose: Infused Ibuprofen (Ibuprofen 400 Mg Tablet) 400 mg PO QID [facility] Last Admin: 12/03/22 12:10 Dose: 400 mg Levothyroxine Sodium (Levothyroxine Sodium 50 Mcg Tablet) 50 mcg PO DAILY@0600 [facility] Last Admin: 12/03/22 06:44 Dose: 50 mcg Multivitamins/Vitamin C (Multivitamin Tablet) 1 tab PO DAILY [facility] Last Admin: 12/03/22 07:57 Dose: 1 tab Ondansetron HCl (Ondansetron Hcl 4 Mg/2 Ml Vial) 4 mg IVPUSH Q8H PRN PRN Reason: Nausea and Vomiting Pharmacy Consult (Consult Rx Perform Med Rec) 1 each MISCELLANE ONCE PRN PRN Reason: Consult order Pharmacy Consult (Consult Rx Vancomycin Dosing) 1 each MISCELLANE DAILY PRN PRN Reason: Consult order Sodium Chloride (0.9 % Sodium Chloride Flush 3 Ml Syringe) 3 ml IVFLUSH QSHIFT [facility] Last Admin: 12/03/22 07:58 Dose: 3 ml Vitamin D (Cholecalciferol (Vitamin D3) 25 Mcg Tablet) 50 mcg PO DAILY [facility] Last Admin: 12/03/22 07:57 Dose: 50 mcg Home Medications Medication Instructions Recorded Confirmed Last Taken Type Ginkgo 1 tab PO DAILY 04/22/21 12/02/22 Unknown History multivitamin 1 tab PO DAILY 04/22/21 12/02/22 Unknown History hnavqtf-vqzn-zjero-oreg-capryl 1 tab PO DAILY 04/22/21 12/02/22 Unknown History levothyroxine 50 mcg tablet 50 mcg PO DAILY 12/15/21 12/02/22 12/02/22 History cholecalciferol (vitamin D3) 50 50 mcg PO DAILY 12/02/22 12/02/22 Unknown History mcg (2,000 unit) capsule (Vitamin D3) ibuprofen 400 mg tablet 400 mg PO Q6H 12/02/22 12/02/22 12/02/22 History omega-3s 300 eu-kbc-jpx-other 1 cap PO DAILY 12/02/22 12/02/22 Unknown History qhndv0c-fquf oil 1,000 mg capsule ([place]-3 Fish Oil) Exam Exam Date and Time: December 03, 2022 1300 Height,Weight and Vital Signs: Height 5 ft 10 in Weight 78.2 kg Last Vital Signs Temp 97.8 F 12/03/22 12:37 Pulse 72 12/03/22 12:37 Resp 16 12/03/22 12:37 BP 108/64 12/03/22 12:37 Pulse Ox 97 12/03/22 12:37 O2 Del Method Room Air 12/03/22 12:37 Pertinent Lab Results Pertinent Lab Results: Laboratory Tests 12/02/22 12/02/22 12/02/22 15:21 15:21 17:16 WBC 8.9 RBC 4.35 L Hgb 13.3 L Hct 39.6 L MCV 91.0 MCH 30.6 MCHC 33.6 RDW 11.9 Plt Count 450 H MPV 8.3 L Immature Gran % (Auto) 0.3 Neut % (Auto) 71.9 Lymph % (Auto) 17.7 L [place] % (Auto) 8.4 Eos % (Auto) 0.9 Baso % (Auto) 0.8 Lymph # (Auto) 1.6 [place] # (Auto) 0.8 Eos # (Auto) 0.1 Baso # (Auto) 0.1 Abs Immat Gran (auto) 0.03 Absolute Neuts (auto) 6.4 Absolute Nucleated RBC 0.000 Nucleated RBC % (auto) 0.0 ESR 79 H Sodium 137 Potassium 4.1 Chloride 103 Carbon Dioxide 24 Anion Gap 14 BUN 16 Creatinine 0.77 Estim Creat Clear Calc 93.4 Estimated GFR > 60 Random Glucose 91 Lactic Acid Calcium 9.9 C-Reactive Protein 12/02/22 12/02/22 12/03/22 17:16 17:16 06:15 WBC 8.0 RBC 4.04 L Hgb 12.6 L Hct 37.0 L MCV 91.6 MCH 31.2 MCHC 34.1 RDW 11.9 Plt Count 381 MPV 8.9 L Immature Gran % (Auto) Neut % (Auto) Lymph % (Auto) [place] % (Auto) Eos % (Auto) Baso % (Auto) Lymph # (Auto) [place] # (Auto) Eos # (Auto) Baso # (Auto) Abs Immat Gran (auto) Absolute Neuts (auto) Absolute Nucleated RBC 0.000 Nucleated RBC % (auto) 0.0 ESR Sodium Potassium Chloride Carbon Dioxide Anion Gap BUN Creatinine Estim Creat Clear Calc Estimated GFR Random Glucose Lactic Acid 1.6 Calcium C-Reactive Protein 3.20 H 12/03/22 12/03/22 06:15 06:15 WBC RBC Hgb Hct MCV MCH MCHC RDW Plt Count MPV Immature Gran % (Auto) Neut % (Auto) Lymph % (Auto) [place] % (Auto) Eos % (Auto) Baso % (Auto) Lymph # (Auto) [place] # (Auto) Eos # (Auto) Baso # (Auto) Abs Immat Gran (auto) Absolute Neuts (auto) Absolute Nucleated RBC Nucleated RBC % (auto) ESR Sodium 138 Potassium 4.3 Chloride 107 Carbon Dioxide 24 Anion Gap 11 L BUN 12 Creatinine 0.76 0.74 Estim Creat Clear Calc 94.7 97.2 Estimated GFR > 60 > 60 Random Glucose 91 Lactic Acid Calcium 9.2 D C-Reactive Protein Airway Mallampati Class: II TM Dist: >3cm Neck ROM: Full Assessment and Plan Assessment Anesthesia Assessment: Anesthesia Plan Discussed and Chart Reviewed Final Anesthetic Review Family History of Problems with Anesthesia: No History of Problems with Anesthesia: No NPO: Yes ASA Class: II Final Preanesthetic Review: No Changes in Pt Med Stat, Meds/Allgs Chart Reviewed, Consent Obtained/Reviewed and Anes Risks/Benef Reviewed Patient Risk: Low Procedure Risk: Low Anesthetic Plan Anesthetic Plan: GA Disposition: Standard PACU
--- NOTE | 2022-12-03 13:51 | PM.CNOR ---
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 There, he was taken the operating room by a plastic strained hand surgeon and underwent zone 2 flexor tendon repairs x2, digital nerve repairs with ax urgent conduits x2 and digital artery repairs x2 to the left index finger, with the same procedures being done to the left middle finger and the left ring finger. He was participating in outpatient OT and about 3 days ago may start to appreciate some increased swelling. When he was seen yesterday in OT he had significantly increased swelling and karlo purulence. He was then admitted to our hospital and we were consulted this morning. He is currently on IV vancomycin. I spoke with about the patient's injury in about the rather extensive surgery he performed on 11/15/2022. The patient and his her very happy with this doctor and will likely want to continue follow-up with him afterwards. [facility] Past Medical History Medical History Bladder outlet obstruction COVID-19 vaccine series completed Hx of fracture of tibia Hypothyroid Nocturia Sciatic nerve pain Tinnitus of right ear Torn rotator cuff Weak urinary stream Surgical History Surgical History Hx of cholecystectomy Hx of colonoscopy Hx of hernia repair Hx of total knee replacement Social History Social History Household Members: Spouse Housing: House Do you presently have visiting nurse or other home services: No Alcohol intake: current Alcohol intake frequency: holidays/special occasions only Alcohol type: beer Patient Tobacco Use Status: Former Tobacco user Quit Date: Second Hand Smoke Exposure: No service: No Meds Allergies Allergy/AdvReac Type Severity Reaction Status Date / Time No Known Allergies Allergy Verified 12/02/22 15:12 Active Medications: Current Medications Acetaminophen (Acetaminophen 325 Mg Tablet) 650 mg PO Q6H PRN PRN Reason: Pain, Mild (Pain Scale 1-3) Docusate Sodium (Docusate Sodium 100 Mg Capsule) 100 mg PO DAILY PRN PRN Reason: Constipation Fentanyl (Fentanyl Citrate/Pf 100 Mcg/2 Ml Vial) 50 mcg IVPUSH Q5M PRN; Protocol PRN Reason: Pain, Severe (Pain Scale 7-10) Lactated Ringer's (Lr) 1,000 mls @ 80 mls/hr IVCONT .[id number] [facility] Last Infusion: 12/03/22 12:19 Dose: 0 mls/hr Piperacillin Sod/Tazobactam (Sod 3.375 gm/ Sodium Chloride) 50 mls @ 100 mls/hr IV Q6H [facility] Last Infusion: 12/03/22 12:36 Dose: 0 mls/hr Vancomycin HCl 1,000 mg/ (Sodium Chloride) 270 mls @ 270 mls/hr IV Q12H [facility] Last Infusion: 12/03/22 06:57 Dose: Infused Ibuprofen (Ibuprofen 400 Mg Tablet) 400 mg PO QID [facility] Last Admin: 12/03/22 12:10 Dose: 400 mg Levothyroxine Sodium (Levothyroxine Sodium 50 Mcg Tablet) 50 mcg PO DAILY@0600 [facility] Last Admin: 12/03/22 06:44 Dose: 50 mcg Multivitamins/Vitamin C (Multivitamin Tablet) 1 tab PO DAILY [facility] Last Admin: 12/03/22 07:57 Dose: 1 tab Ondansetron HCl (Ondansetron Hcl 4 Mg/2 Ml Vial) 4 mg IVPUSH Q8H PRN PRN Reason: Nausea and Vomiting Ondansetron HCl (Ondansetron Hcl 4 Mg/2 Ml Vial) 4 mg IVPUSH ONCE PRN PRN Reason: Nausea and Vomiting Oxycodone HCl (Oxycodone Hcl Immed Release 5 Mg Tablet) 5 mg PO ONCE PRN PRN Reason: Pain, Severe (Pain Scale 7-10) Pharmacy Consult (Consult Rx Perform Med Rec) 1 each MISCELLANE ONCE PRN PRN Reason: Consult order Pharmacy Consult (Consult Rx Vancomycin Dosing) 1 each MISCELLANE DAILY PRN PRN Reason: Consult order Sodium Chloride (0.9 % Sodium Chloride Flush 3 Ml Syringe) 3 ml IVFLUSH QSHIFT [facility] Last Admin: 12/03/22 07:58 Dose: 3 ml Vitamin D (Cholecalciferol (Vitamin D3) 25 Mcg Tablet) 50 mcg PO DAILY [facility] Last Admin: 12/03/22 07:57 Dose: 50 mcg Home Medications Medication Instructions Recorded Confirmed Last Taken Type Ginkgo 1 tab PO DAILY 04/22/21 12/02/22 Unknown History multivitamin 1 tab PO DAILY 04/22/21 12/02/22 Unknown History meydups-mpyc-bmvck-oreg-capryl 1 tab PO DAILY 04/22/21 12/02/22 Unknown History levothyroxine 50 mcg tablet 50 mcg PO DAILY 12/15/21 12/02/22 12/02/22 History cholecalciferol (vitamin D3) 50 50 mcg PO DAILY 12/02/22 12/02/22 Unknown History mcg (2,000 unit) capsule (Vitamin D3) ibuprofen 400 mg tablet 400 mg PO Q6H 12/02/22 12/02/22 12/02/22 History omega-3s 300 iw-iha-cvi-other 1 cap PO DAILY 12/02/22 12/02/22 Unknown History ygcsi3z-pgag oil 1,000 mg capsule ([place]-3 Fish Oil) Physical Exam Vital Signs: Vital Signs: Last Vital Signs Temp 97.8 F 12/03/22 12:37 Pulse 72 12/03/22 12:37 Resp 16 12/03/22 12:37 BP 108/64 12/03/22 12:37 Pulse Ox 97 12/03/22 12:37 O2 Del Method Room Air 12/03/22 12:37 BMI result Body Mass Index 24.7 Extrem: Other: O:? ?patient was alert oriented and in no acute distress.? He was seen with his . ? Regarding his left hand, he has significant swelling and erythema particularly in the palmar aspect of the hand in the? ?Mid palm,A1 tammy areas and extending into the index middle and to some extent the ring fingers.? there is some creamy yellow purulence appreciated and a new wound that has shown up in the distal mid palm that the patient and his say were not part of the original injury. ? Four fingers in the thumb appear to have reasonable capillary refill, though understandably there was significant hyperemia and erythema from the infection. ? Fingers are held in a flexed position.? Sensation would not be present to the index middle and ring fingers as he had? nerve repairs x2 to each digit. Radiographs three views of the patient's left hand were reviewed by me today. They are somewhat suboptimal. I am concerned about possible fracture involving the PIP joint of the left index finger. Results Labs 12/03/22 06:15 12/03/22 06:15 Labs: Abnormal lab results 12/02/22 12/02/22 12/02/22 Range/Units 15:21 17:16 17:16 RBC 4.35 L (4.60-5.80) X10*6/uL Hgb 13.3 L (14.0-18.0) g/dl Hct 39.6 L (42.0-52.0) % Plt Count 450 H (160-400) X10*3/uL MPV 8.3 L (9.4-12.4) fL Lymph % (Auto) 17.7 L (20-40) % ESR 79 H (0-15) MM/HR Anion Gap (12-20) C-Reactive Protein 3.20 H (< or = 0.50) mg/dL 12/03/22 12/03/22 Range/Units 06:15 06:15 RBC 4.04 L (4.60-5.80) X10*6/uL Hgb 12.6 L (14.0-18.0) g/dl Hct 37.0 L (42.0-52.0) % Plt Count (160-400) X10*3/uL MPV 8.9 L (9.4-12.4) fL Lymph % (Auto) (20-40) % ESR (0-15) MM/HR Anion Gap 11 L (12-20) C-Reactive Protein (< or = 0.50) mg/dL H & H 12/02/22 12/03/22 Range/Units 15:21 06:15 Hgb 13.3 L 12.6 L (14.0-18.0) g/dl Hct 39.6 L 37.0 L (42.0-52.0) % All other labs normal. Assessment and Plan (1) Infection of left hand: Status: Acute Plan Assessment and plan: Patient With significant postoperativeleft hand infection status post: 1. Left index finger: repair of flexor tendons x2 and zone 2, and repair of to digital nerves with [employer] neurologic to is and digital arteries x2 2. Left middle finger: repair of flexor tendons x2 and zone 2, and repair of to digital nerves with [employer] neurologic to is and digital arteries x2 3. Left Ring finger: repair of flexor tendons x2 and zone 2, and repair of to digital nerves with Axo[employer] neurologic to is and digital arteries x2 date of table saw injury was 11/13/2024 on [facility] date of surgery was 11/15/2022 with an outside surgeon on [facility] again this is a for significant infection. I educated the patient and his about this condition and I am recommending surgery. The risks and benefits of operative treatment were discussed with the patient and the patient wishes to proceed with surgery. These risks include, but are not limited to risk of damage to blood vessels, nerves, tendons, infection, recurrence, incomplete relief of preoperative symptoms, persistent pain, possible need for further surgery and the risks associated with regional blocks and anesthesia. The plan is to take the patient to the operating room Today for the following procedures: 1. left hand infection I&D 2. [ ] All of the preoperative paperwork including the consent was filled out today and signed. All the patient's questions were answered. The patient understands and wishes to proceed with surgery Time Spent With Patient Time: Total time managing care of this patient today ____ minutes. Procedures Date of Service Date of Service: 12/03/22
--- NOTE | 2022-12-03 15:52 | MHC.SHP ---
Pre-Procedural Eval Section A Date of Service: 12/03/22 The patient is an INPATIENT: Yes Changes since office visit: No Cold of Flu in the past 2 weeks, No New Medical Problems, No Changes in Medication and No Patient answered all questions The History & Physical has been completed within 30 days and I have reviewed it.: Yes Section B Chief Complaint: Left Hand infection Allergies: Allergies Allergy/AdvReac Type Severity Reaction Status Date / Time No Known Allergies Allergy Verified 12/02/22 15:12 Plan I have reviewed the history and physical and performed a pertinent physical examination on my patient. No changes have occurred unless specified. Time Spent With Patient Time: Total time managing care of this patient today ____ minutes.
--- NOTE | 2022-12-03 15:53 | W.PM.OPN ---
Operative Note Operative Note Date of Service: 12/03/22 Narrative: Operative Note Narrative: Preop diagnosis: left hand infection status post - left index finger zone 2 flexor tendon repairs x2, microscopic repair of digital nerves using AxoGen tubes x 2, microscopic repair of digital arteries times 2 - left middle finger zone 2 flexor tendon repairs x2,? ?microscopic repair of digital nerves using AxoGen? tubes x 2,? ?microscopic repair of digital arteries times 2? - left ring finger zone 2 flexor tendon repairs x2,? ?microscopic repair of digital nerves using AxoGen? tubes x 2,? ?microscopic repair of digital arteries times 2? Postop diagnosis: Same Procedure: 1. I&D of left hand including mid palmar space. 2. I&D of left index finger including flexor tendon sheath 3. I and D of left middle finger including flexor tendon sheath 4. I and D of left ring finger including flexor tendon sheath at the A1 tammy Surgeon: Sarah Simms MD Anesthesia: General Anesthesia Findings: - creamy yellow purulence from mid palmar abscess and coming from flexor tendon sheaths of the index and middle fingers. - Dehiscence and loss of soft tissue coverage over the flexor tendon sheaths of the index finger and middle finger at the middle phalanx levels - spontaneous abscess drainage in line with the middle finger at the distal mid palmar crease, over the volar aspect of the proximal phalanx of the middle finger, and with hematoma and then creamy drainage from a wound on the more dorsal radial aspect of the middle finger proximal phalanx just distal to the 2nd webspace - slow cap refill to the tips of the index, middle and ring fingers at the beginning of the case and at the end of the case - possible minimally displaced fracture of the distal head of the index finger proximal phalanx Implants: none Tourniquet time: 5 minutes EBL: 5.0 ml Specimen: cultures taken of purulence x2 Drains: iodoform drains x5 Complications: None Disposition: Brought to the recovery room in stable condition Plan: -admit to floor to continue IV antibiotics. -Adjust antibiotics based on cultures. -Wound check tomorrow and remove drains x5 -possible repeat I and D, possible finger amputation on Wednesday - I spoke with the patient's original hand surgeon, Dr. Chase, and it is possible that the patient may wish to be transferred to 1 of his hospitals for continued management of these injuries. We are happy to help in any way we can. Indications: The patient is a 67-year-old man with a bad left hand infection. The patient is status post a table saw injury on 11/13/2022, that was taken to the operating room at an outside facility on 11/15/2022 for repair of zone 2 flexor tendon injuries x2, digital nerves x2 and microscopic repair of the digital arteries times 2, to 3 fingers: the left index finger, middle finger and ring finger. . The risks and benefits of operative treatment, including but not limited to risk of damage to blood vessels, nerves, tendons, infection, recurrence, persistent pain or numbness, incomplete resolution of preoperative symptoms, or need for further surgery were discussed with the patient and they wished to proceed with surgery. Procedure: Once consent was obtained patient was brought back to the operating suite and placed in the operating table in a supine position. The patient is on vancomycin already. Anesthesia was administered by the anesthesia team. A tourniquet was applied to the proximal aspect of the Left upper extremity and the limb was prepped and draped in a standard surgical fashion. The limb was elevated and the tourniquet inflated to 250 mm of mercury for a total tourniquet time of 5 minutes. After 5 minutes I dropped the tourniquet out of an abundance of caution for the vascular repairs in the left index middle and ring fingers. ?I passed the tips of tenotomy scissors into the apex of an abscess in line with the middle finger at the distal mid palmar crease.? We had some creamy yellow purulence which was cultured. I then extended this distally in a zig zag fashion with an oblique incision over the A1 tammy using a 15. Blade. I carefully dissected down into the mid palmar space using tenotomy scissors and we found some more creamy yellow purulence. The tips of the tenotomy scissors were also passed into a wound that appeared to be in apex of another abscess over the middle finger proximal phalanx just distal to the palmar digital crease. We found some creamy yellow purulence in this area. I made an oblique 2 cm incision over the index finger A1 tammy and dissected down to the flexor tendon sheath with tenotomy scissors. I made another 2 cm oblique incision over the A1 tammy of the patient's left ring finger and again dissected down to the flexor tendon sheath. I then debrided the wounds over the volar aspect of the index finger middle phalanx and proximal phalanx and over the middle phalanx of the middle finger. There was some fibrinous exudate and eschar in these areas that was carefully excised. There was some creamy yellow purulence from these wounds as well. Unfortunately the patient appears to have lost skin coverage in these areas and the flexor tendons are exposed. Interestingly, there was also a purple appearing raised wound over the dorsal radial aspect of the middle finger proximal phalanx. I did pass tenotomy scissors into this area and we immediately had a foul odor and some hematoma and creamy yellow purulence for drainage. It did have the general surgeon come in to take a look at this wound to assure that we were not looking in a more serious type of infection. The wound was vascular and bleeding, and in his opinion did not appear particularly worrisome for such a problem. There was a much smaller wound over the ulnar aspect of the ring finger near the D IP joint. This was also carefully debrided. I did not find purulence in this wound. Indeed the ring finger was much less swollen and did not appear to have evidence of flexor tenosynovitis. All wounds were copiously irrigated with normal saline. I also used a 10 mL syringe with an Angiocath to adequately fit flush from proximal to distal beneath skin bridges along the flexor tendons of the middle and ring fingers. The volar wound over the middle phalanx and proximal phalanx also communicated with the wound on the dorsal radial aspect of the proximal phalanx of the middle finger. These wounds were all copiously irrigated. I placed 5 strips of iodoform gauze in the 3 wounds over the A1 pulleys, the volar and the radial wounds over the middle finger proximal phalanx to facilitate drainage. A sterile dressing and a dorsal splint holding the fingers in some flexion were then placed. The patient appears to have tolerated the procedure well and with no complications. Patient was noted to have slow cap refill to the index middle and ring fingers at the beginning of the case and this was the same at the end of the case.
[2022-12-03] MEDS: fentaNYL citrate/PF 100 MCG/2 ML VIAL 50 MCG IVPUSH (16:30)
[2022-12-03] MEDS: Acetaminophen 325 MG TABLET 650 MG PO (16:46)
--- NOTE | 2022-12-03 18:23 | HE.PHANOTE ---
RE: vanco Level on 12/03/22 not drawn, vanco already infusing by the time I contacted chemistry and spoke to Samson. New order put in to be drawn 12/04/22 @ 1600. Renal function is stable
[2022-12-04 03:12] VITALS: BP 102/50; PULSE 78; RESP 16; TEMP 36.8; O2SAT 98
[2022-12-04] MEDS: Piperacillin Sodium/Tazobactam 3.375 GM in 0.9 % Sodium Chloride 50 ML IV ×4 (06:04→23:55)
[2022-12-04] MEDS: Levothyroxine Sodium 50 MCG TABLET PO (06:04)
[2022-12-04] MEDS: vancomycin HCL 1,000 MG in 0.9 % Sodium Chloride 250 ML 270 MG IV ×2 (06:37→17:38)
[2022-12-04 06:46] LABS: Hematocrit 34.2 % (42.0-52.0); Hemoglobin 11.4 g/dl (14.0-18.0); Mean Corpuscular HGB Conc 33.3 g/dl (31.0-36.0); Mean Corpuscular Hemoglobin 30.6 pg (27.0-33.0); Mean Corpuscular Volume 91.7 fL (80.0-98.0); Mean Platelet Volume 8.8 fL (9.4-12.4); Platelet Count 343 X10*3/uL (160-400); Red Blood Count 3.73 X10*6/uL (4.60-5.80); Red Cell Distribution Width 11.9 % (11.0-16.0); White Blood Count 6.7 X10*3/uL (4.8-10.8)
[2022-12-04 06:49] LABS: Creatinine Clr Calc Pharmacy 94.7; Estimated Glomerular Filt Rate > 60
[2022-12-04 06:52] LABS: Anion Gap 12 (12-20); Blood Urea Nitrogen 11 mg/dL (9-16); Carbon Dioxide 23 mmol/L (22-29); Chloride 109 mmol/L (96-108); Creatinine Clr Calc Pharmacy 97.2; Estimated Glomerular Filt Rate > 60; Glucose Random 93 mg/dL (60-115); Sodium 140 mmol/L (135-145)
[2022-12-04] MEDS: Ibuprofen 400 MG TABLET PO ×4 (08:06→21:36)
[2022-12-04] MEDS: Cholecalciferol (Vitamin D3) 25 MCG TABLET 50 MCG PO (08:06)
[2022-12-04] MEDS: Omeprazole 40 MG CAPSULE.DR PO (08:06)
[2022-12-04] MEDS: Multivitamin TABLET 1 TAB PO (08:06)
[2022-12-04] MEDS: Acetaminophen 325 MG TABLET 650 MG PO ×2 (08:08→17:37)
[2022-12-04 08:23] VITALS: BP 125/67; PULSE 86; RESP 20; TEMP 36.7; O2SAT 97
--- NOTE | 2022-12-04 10:07 | PM.PNORT ---
Subjective Subjective Date of Service: 12/04/22 Interval history: Postop day 1 status post: 1. I&D of left hand including mid palmar space. ?2. I&D of left index finger including flexor tendon? sheath ?3. I and D of left middle finger including flexor tendon sheath ?4. I and D of left ring finger including flexor tendon sheath at the A1 tammy No overnight events. He is resting comfortably in bed. He states he spoke with his plastic surgeon who encouraged him to stay at our hospital over the weekend and have another washout on Wednesday and if there is any further intervention that is recommended then he will continue the care i.e. amputation verses repair Physical Exam Vital Signs: Vital Signs: Last Vital Signs Temp 98.0 F 12/04/22 08:23 Pulse 86 12/04/22 08:23 Resp 20 12/04/22 08:23 BP 125/67 12/04/22 08:23 Pulse Ox 97 12/04/22 08:23 O2 Del Method Room Air 12/04/22 08:23 O2 Flow Rate 2.0 12/03/22 17:17 BMI result Body Mass Index 24.7 Const: General: cooperative, healthy appearing and no acute distress Resp: Effort & Inspection: normal respiratory effort and able to speak in complete sentences Cardio: Rate: regular rate Peripheral pulses: Peripheral pulses 2+ throughout GI: Palpation (GI): Soft to palpation Skin: General skin exam: no rashes or lesions noted Extrem: Other: Left hand has 5 iodoform drains that were pulled today. There is no active purulence drainage. Sensation is intact throughout the hand except for absence of sensation along the radial digital nerve of the middle finger and he has no sensation over the tips of the index middle and ring finger Procedures Date of Service Date of Service: 12/04/22 Progress Note: A&P Assessment and plan (1) Infection of left hand: Status: Acute Assessment and Plan: Dressing change was performed today. Iodoform packing removed and Xeroform was placed over the incisions with gauze and Andrade wrap. I encouraged elevation. His plastic surgeon would like him to work on gentle range of motion as tolerated. Continue antibiotics. The plan for right now is for him to remain in the hospital with antibiotics and to be re-evaluated on Wednesday for an I&D - I did explain to the patient he needs to be NPO after midnight on Wednesday If there is potential for amputation the patient would like to hold off on this and see his plastic surgeon to see if there is any way to salvage this. This will be discussed with Dr. Simms Time Spent With Patient Time: Total time managing care of this patient today ____ minutes. Quality Stroke Does the patient have a stroke diagnosis?: No VTE Prior VTE?: No VTE Risk Level:: Medical - moderate - high VTE Device Contraindication: N/A - Device Ordered VTE Drug Contraindication: Treatment Not Indicated
[2022-12-04 11:25] VITALS: BP 112/61; PULSE 76; RESP 20; TEMP 36.6; O2SAT 97
--- NOTE | 2022-12-04 12:56 | MHC.CM.PN ---
EMR REVIEWED, PT W/ L HAND CELLULITIS, PT WILL REMAIN INPT OVER W/E FOR IV ABX, BC AND WOUND CULTURES PENDING, NO PLAN FOR D/C AT THIS TIME, CM WILL CONT TO FOLLOW D/C NEEDS.
[2022-12-04 13:02] VITALS: O2SAT 99
--- NOTE | 2022-12-04 13:14 | P.PNIM_ITS ---
Subjective Subjective Date of Service: 12/04/22 Interval History: Seen and evaluated this morning POD 1 pain under fair control Denies any fever or chills cultures still negative No other overnight events Review of Systems Review of Systems: Yes all other systems are reviewed and are negative Physical Exam Vital Signs: Vital Signs: Last Vital Signs Temp 98 F 12/04/22 11:25 Pulse 76 12/04/22 11:25 Resp 20 12/04/22 11:25 BP 112/61 12/04/22 11:25 Pulse Ox 97 12/04/22 11:25 O2 Del Method Room Air 12/04/22 11:25 O2 Flow Rate 2.0 12/03/22 17:17 BMI result Body Mass Index 24.7 Const: Other: Constitutional : Awake, interactive, not in distress Neck : Normal inspection, Supple Cardiovascular : RRR, no JVP, no lower extremity edema Respiratory : good bilateral air entry, no crackles, wheezes or rhonchi Gastrointestinal: soft, lax, Normal bowel sounds, Non tender Skin : Warm, Dry, Left hand in dressing Neurological : Alert & oriented x3, No focal deficit Objective Data Active Medications Acetaminophen (Acetaminophen 325 Mg Tablet) 650 mg PO Q6H PRN PRN Reason: Pain, Mild (Pain Scale 1-3) Last Admin: 12/04/22 08:08 Dose: 650 mg Documented By: KRISTEN Docusate Sodium (Docusate Sodium 100 Mg Capsule) 100 mg PO DAILY PRN PRN Reason: Constipation Fentanyl (Fentanyl Citrate/Pf 100 Mcg/2 Ml Vial) 50 mcg IVPUSH Q5M PRN; Protocol PRN Reason: Pain, Severe (Pain Scale 7-10) Last Admin: 12/03/22 16:30 Dose: 50 mcg Documented By: FERD Piperacillin Sod/Tazobactam (Sod 3.375 gm/ Sodium Chloride) 50 mls @ 100 mls/hr IV Q6H [facility] Last Admin: 12/04/22 12:37 Dose: 100 mls/hr Documented By: KRISTEN Vancomycin HCl 1,000 mg/ (Sodium Chloride) 270 mls @ 270 mls/hr IV Q12H [facility] Last Infusion: 12/04/22 07:45 Dose: 0 mls/hr Documented By: KRISTEN Ibuprofen (Ibuprofen 400 Mg Tablet) 400 mg PO QID [facility] Last Admin: 12/04/22 12:40 Dose: 400 mg Documented By: KRISTEN Levothyroxine Sodium (Levothyroxine Sodium 50 Mcg Tablet) 50 mcg PO DAILY@0600 [facility] Last Admin: 12/04/22 06:04 Dose: 50 mcg Documented By: GENNA Multivitamins/Vitamin C (Multivitamin Tablet) 1 tab PO DAILY [facility] Last Admin: 12/04/22 08:06 Dose: 1 tab Documented By: KRISTEN Omeprazole (Omeprazole 40 Mg Capsule.Dr) 40 mg PO DAILY@0630 [facility] Last Admin: 12/04/22 08:06 Dose: 40 mg Documented By: KRISTEN Ondansetron HCl (Ondansetron Hcl 4 Mg/2 Ml Vial) 4 mg IVPUSH Q8H PRN PRN Reason: Nausea and Vomiting Ondansetron HCl (Ondansetron Hcl 4 Mg/2 Ml Vial) 4 mg IVPUSH ONCE PRN PRN Reason: Nausea and Vomiting Oxycodone HCl (Oxycodone Hcl Immed Release 5 Mg Tablet) 5 mg PO ONCE PRN PRN Reason: Pain, Severe (Pain Scale 7-10) Pharmacy Consult (Consult Rx Perform Med Rec) 1 each MISCELLANE ONCE PRN PRN Reason: Consult order Pharmacy Consult (Consult Rx Vancomycin Dosing) 1 each MISCELLANE DAILY PRN PRN Reason: Consult order Sodium Chloride (0.9 % Sodium Chloride Flush 3 Ml Syringe) 3 ml IVFLUSH QSHIFT [facility] Last Admin: 12/04/22 08:10 Dose: Not Given Documented By: KRISTEN Non-Admin Reason: IV Running Vitamin D (Cholecalciferol (Vitamin D3) 25 Mcg Tablet) 50 mcg PO DAILY [facility] Last Admin: 12/04/22 08:06 Dose: 50 mcg Documented By: KRISTEN Labs 12/04/22 05:59 12/04/22 05:59 Labs: Laboratory Results - last 24 hr 12/04/22 12/04/22 12/04/22 05:59 05:59 05:59 MCV 91.7 MCH 30.6 MCHC 33.3 RDW 11.9 Plt Count 343 MPV 8.8 L Absolute Nucleated RBC 0.000 Nucleated RBC % (auto) 0.0 Anion Gap 12 Estim Creat Clear Calc 97.2 94.7 Estimated GFR > 60 > 60 Random Glucose 93 Calcium 9.0 Microbiology Microbiology Results: Microbiology 12/03/22 14:25 Gram Stain - Final Hand Left Routine Culture - Preliminary Culture in progress. 12/02/22 18:19 Blood Culture - Preliminary Blood - Venous No growth after 24 hours. 12/02/22 17:16 Blood Culture - Preliminary Blood - Venous No growth after 24 hours. Assessment and Plan (1) Infection of left hand: Status: Acute Plan Pt is a 67-year-old male with a PMH significant for hypothyroidism and prostatectomy who presents to the ED with?left hand redness, swelling, and purulent drainage since earlier in the week. Left hand cellulitis and abscess post surgery 11/15 POD 1 Continue vancomycin and Zosyn, started on 12/02/2022 Orthopedic team following with a plan for repeat surgery on Wednesday Discussions with his primary surgical team by dr Sarah Simms NPO after midnight Follow cultures Follow Vanco trough Hypothyroidism Continue levothyroxine Full Code DVT Prophylaxis: Pneumatic boots Pt will require a hospitalization of overnight for treatment of?left hand c ellulitis status post hand surgery with IV antibiotics and possible surgical intervention by Wednesday Time Spent With Patient Time: Total time managing care of this patient today ____ minutes. Quality Stroke Does the patient have a stroke diagnosis?: No VTE Prior VTE?: No VTE Risk Level:: Medical - moderate - high VTE Device Contraindication: N/A - Device Ordered VTE Drug Contraindication: Treatment Not Indicated
[2022-12-04 15:15] VITALS: BP 135/72; PULSE 77; RESP 20; TEMP 36.5; O2SAT 97
[2022-12-04 16:43] LABS: Vancomycin Random 11.2 mcg/mL (15-20)
[2022-12-04] MEDS: 0.9 % Sodium Chloride Flush 3 ML SYRINGE IVFLUSH ×2 (17:41→23:55)
--- NOTE | 2022-12-04 18:20 | PC.NURSE ---
Continue on IV antibiotics per orders. Fluids dc'd this am patient with good intake. Left hand remains with dressing in place and david wrap +CSM. c/o pain 07/31 medicated with prn tylenol and scheduled ibuprofen with effect. LUE elevated with pillows. Will continue to monitor and report changes
[2022-12-04 19:18] VITALS: BP 133/71; PULSE 77; RESP 20; TEMP 36.7; O2SAT 98
[2022-12-05] VITALS (8 sets, daily range): BP systolic 116–148; BP diastolic 66–74; PULSE 72–84; RESP 17–20; TEMP 36–37; O2SAT 96–99
[2022-12-05] MEDS: Levothyroxine Sodium 50 MCG TABLET PO (05:41)
[2022-12-05] MEDS: Omeprazole 40 MG CAPSULE.DR PO (05:41)
[2022-12-05] MEDS: Piperacillin Sodium/Tazobactam 3.375 GM in 0.9 % Sodium Chloride 50 ML IV ×3 (05:42→18:57)
[2022-12-05 05:53] LABS: Hematocrit 34.7 % (42.0-52.0); Hemoglobin 11.8 g/dl (14.0-18.0); Mean Corpuscular Hemoglobin 31.7 pg (27.0-33.0); Mean Corpuscular Volume 93.3 fL (80.0-98.0); Platelet Count 326 X10*3/uL (160-400); Red Blood Count 3.72 X10*6/uL (4.60-5.80); White Blood Count 5.7 X10*3/uL (4.8-10.8)
[2022-12-05 06:04] LABS: Creatinine Clr Calc Pharmacy 95.9; Estimated Glomerular Filt Rate > 60
[2022-12-05 06:05] LABS: Anion Gap 12 (12-20); Blood Urea Nitrogen 8 mg/dL (9-16); Calcium 9.4 mg/dL (8.4-10.2); Carbon Dioxide 25 mmol/L (22-29); Chloride 108 mmol/L (96-108); Creatinine Clr Calc Pharmacy 95.9; Estimated Glomerular Filt Rate > 60; Glucose Random 95 mg/dL (60-115); Sodium 141 mmol/L (135-145)
[2022-12-05] MEDS: vancomycin HCL 1,000 MG in 0.9 % Sodium Chloride 250 ML 270 MG IV ×2 (06:16→17:16)
--- NOTE | 2022-12-05 09:06 | PM.PNORT ---
Subjective Subjective Date of Service: 12/05/22 Interval history: Postop day 2 status post: 1. I&D of left hand including mid palmar space. ?2. I&D of left index finger including flexor tendon? sheath ?3. I and D of left middle finger including flexor tendon sheath ?4. I and D of left ring finger including flexor tendon sheath at the A1 tammy No overnight events. He is resting comfortably in bed. He states he spoke with his plastic surgeon who encouraged him to stay at our hospital over the weekend and have another washout on Wednesday and if there is any further intervention that is recommended then he will continue the care i.e. amputation verses repair Physical Exam Vital Signs: Vital Signs: Last Vital Signs Temp 97.5 F 12/05/22 07:51 Pulse 72 12/05/22 07:51 Resp 20 12/05/22 07:51 BP 117/66 12/05/22 07:51 Pulse Ox 98 12/05/22 07:51 O2 Del Method Room Air 12/05/22 07:51 O2 Flow Rate 2.0 12/03/22 17:17 BMI result Body Mass Index 24.7 Const: General: cooperative, healthy appearing and no acute distress Resp: Effort & Inspection: normal respiratory effort and able to speak in complete sentences Cardio: Rate: regular rate Peripheral pulses: Peripheral pulses 2+ throughout GI: Palpation (GI): Soft to palpation Skin: General skin exam: no rashes or lesions noted Extrem: Other: Left hand has 5 iodoform drains that were pulled today. There is no active purulence drainage. Sensation is intact throughout the hand except for absence of sensation along the radial digital nerve of the middle finger and he has no sensation over the tips of the index middle and ring finger Procedures Date of Service Date of Service: 12/05/22 Progress Note: A&P Assessment and plan (1) Infection of left hand: Status: Acute Assessment and Plan: Dressing change was performed today. I encouraged elevation. His plastic surgeon would like him to work on gentle range of motion as tolerated. Continue antibiotics. The plan for right now is for him to remain in the hospital with antibiotics and to be re-evaluated on Wednesday for an I&D - I did explain to the patient he needs to be NPO after midnight on Wednesday If there is potential for amputation the patient would like to hold off on this and see his plastic surgeon to see if there is any way to salvage this. This will be discussed with Dr. Simms Time Spent With Patient Time: Total time managing care of this patient today ____ minutes. Quality Stroke Does the patient have a stroke diagnosis?: No VTE Prior VTE?: No VTE Risk Level:: Medical - moderate - high VTE Device Contraindication: N/A - Device Ordered VTE Drug Contraindication: Treatment Not Indicated
[2022-12-05] MEDS: 0.9 % Sodium Chloride Flush 3 ML SYRINGE IVFLUSH ×3 (09:10→22:18)
[2022-12-05] MEDS: Multivitamin TABLET 1 TAB PO (09:10)
[2022-12-05] MEDS: Ibuprofen 400 MG TABLET PO ×4 (09:10→22:16)
[2022-12-05] MEDS: Cholecalciferol (Vitamin D3) 25 MCG TABLET 50 MCG PO (09:10)
--- NOTE | 2022-12-05 10:43 | HO.PM.IMPN ---
Subjective Subjective Date of Service: 12/05/22 Interval History: Seen and evaluated this morning POD 2 pain under fair control Denies any fever or chills cultures still negative No other overnight events Review of Systems Review of Systems: Yes all other systems are reviewed and are negative Physical Exam Vital Signs: Vital Signs: Last Vital Signs Temp 97.5 F 12/05/22 07:51 Pulse 72 12/05/22 07:51 Resp 20 12/05/22 07:51 BP 117/66 12/05/22 07:51 Pulse Ox 98 12/05/22 07:51 O2 Del Method Room Air 12/05/22 07:51 O2 Flow Rate 2.0 12/03/22 17:17 BMI result Body Mass Index 24.7 Const: Other: Constitutional : Awake, interactive, not in distress Neck : Normal inspection, Supple Cardiovascular : RRR, no JVP, no lower extremity edema Respiratory : good bilateral air entry, no crackles, wheezes or rhonchi Gastrointestinal: soft, lax, Normal bowel sounds, Non tender Skin : Warm, Dry, Left hand in dressing Neurological : Alert & oriented x3, No focal deficit Objective Data Active Medications Acetaminophen (Acetaminophen 325 Mg Tablet) 650 mg PO Q6H PRN PRN Reason: Pain, Mild (Pain Scale 1-3) Last Admin: 12/04/22 17:37 Dose: 650 mg Documented By: KRISTEN Docusate Sodium (Docusate Sodium 100 Mg Capsule) 100 mg PO DAILY PRN PRN Reason: Constipation Fentanyl (Fentanyl Citrate/Pf 100 Mcg/2 Ml Vial) 50 mcg IVPUSH Q5M PRN; Protocol PRN Reason: Pain, Severe (Pain Scale 7-10) Last Admin: 12/03/22 16:30 Dose: 50 mcg Documented By: DANGELAristeo Piperacillin Sod/Tazobactam (Sod 3.375 gm/ Sodium Chloride) 50 mls @ 100 mls/hr IV Q6H [facility] Last Infusion: 12/05/22 06:18 Dose: 0 mls/hr Documented By: ANTOIC Vancomycin HCl 1,000 mg/ (Sodium Chloride) 270 mls @ 270 mls/hr IV Q12H [facility] Last Infusion: 12/05/22 07:32 Dose: 0 mls/hr Documented By: FOGARTB Ibuprofen (Ibuprofen 400 Mg Tablet) 400 mg PO QID [facility] Last Admin: 12/05/22 09:10 Dose: 400 mg Documented By: ALEXX Levothyroxine Sodium (Levothyroxine Sodium 50 Mcg Tablet) 50 mcg PO DAILY@0600 [facility] Last Admin: 12/05/22 05:41 Dose: 50 mcg Documented By: CYNDI Multivitamins/Vitamin C (Multivitamin Tablet) 1 tab PO DAILY [facility] Last Admin: 12/05/22 09:10 Dose: 1 tab Documented By: ALEXX Omeprazole (Omeprazole 40 Mg Capsule.Dr) 40 mg PO DAILY@0630 [facility] Last Admin: 12/05/22 05:41 Dose: 40 mg Documented By: ANTSAMIR Ondansetron HCl (Ondansetron Hcl 4 Mg/2 Ml Vial) 4 mg IVPUSH Q8H PRN PRN Reason: Nausea and Vomiting Ondansetron HCl (Ondansetron Hcl 4 Mg/2 Ml Vial) 4 mg IVPUSH ONCE PRN PRN Reason: Nausea and Vomiting Oxycodone HCl (Oxycodone Hcl Immed Release 5 Mg Tablet) 5 mg PO ONCE PRN PRN Reason: Pain, Severe (Pain Scale 7-10) Pharmacy Consult (Consult Rx Perform Med Rec) 1 each MISCELLANE ONCE PRN PRN Reason: Consult order Pharmacy Consult (Consult Rx Vancomycin Dosing) 1 each MISCELLANE DAILY PRN PRN Reason: Consult order Sodium Chloride (0.9 % Sodium Chloride Flush 3 Ml Syringe) 3 ml IVFLUSH QSHIFT [facility] Last Admin: 12/05/22 09:10 Dose: 3 ml Documented By: ALEXX Vitamin D (Cholecalciferol (Vitamin D3) 25 Mcg Tablet) 50 mcg PO DAILY [facility] Last Admin: 12/05/22 09:10 Dose: 50 mcg Documented By: ALEXX Labs 12/05/22 05:28 12/05/22 05:28 Labs: Laboratory Results - last 24 hr 12/04/22 12/05/22 12/05/22 16:06 05:28 05:28 MCV 93.3 MCH 31.7 MCHC 34.0 RDW 12.0 Plt Count 326 MPV 9.0 L Absolute Nucleated RBC 0.000 Nucleated RBC % (auto) 0.0 Anion Gap 12 Estim Creat Clear Calc 95.9 Estimated GFR > 60 Random Glucose 95 Calcium 9.4 Random Vancomycin 11.2 L 12/05/22 05:28 MCV MCH MCHC RDW Plt Count MPV Absolute Nucleated RBC Nucleated RBC % (auto) Anion Gap Estim Creat Clear Calc 95.9 Estimated GFR > 60 Random Glucose Calcium Random Vancomycin Microbiology Microbiology Results: Microbiology 12/02/22 18:19 Blood Culture - Preliminary Blood - Venous No growth after 48 hours. 12/02/22 17:16 Blood Culture - Preliminary Blood - Venous No growth after 48 hours. 12/03/22 14:25 Gram Stain - Final Hand Left Routine Culture - Preliminary Culture in progress. Assessment and Plan (1) Infection of left hand: Status: Acute Plan Pt is a 67-year-old male with a PMH significant for hypothyroidism and prostatectomy who presents to the ED with?left hand redness, swelling, and purulent drainage since earlier in the week. Left hand cellulitis and abscess post surgery 11/15 POD 2 Continue vancomycin and Zosyn, started on 12/02/2022 Orthopedic team following with a plan for washout surgery on Wednesday Discussions with his primary surgical team by dr Sarah Simms NPO after midnight on Wednesday Follow wound cultures Follow Vanco trough Hypothyroidism Continue levothyroxine Full Code DVT Prophylaxis: Pneumatic boots Pt will require a hospitalization of overnight for treatment of?left hand cellulitis status post hand surgery with IV antibiotics and possible surgical intervention by Wednesday Time Spent With Patient Time: Total time managing care of this patient today ____ minutes. Quality Stroke Does the patient have a stroke diagnosis?: No VTE Prior VTE?: No VTE Risk Level:: Medical - moderate - high VTE Device Contraindication: N/A - Device Ordered VTE Drug Contraindication: Treatment Not Indicated
[2022-12-05 16:59] LABS: Vancomycin Trough 12.7 mcg/mL (10.0-20.0)
--- NOTE | 2022-12-05 17:04 | HE.PHANOTE ---
Vancomycin Dosing Level therapeutic at 12.7. Will continue current regimen. Next level 12/06 @ 1600. Reed HutchinsD
[2022-12-06] MEDS: Piperacillin Sodium/Tazobactam 3.375 GM in 0.9 % Sodium Chloride 50 ML IV ×4 (01:51→17:23)
[2022-12-06 03:17] VITALS: BP 129/72; PULSE 76; RESP 18; TEMP 37.1; O2SAT 97
[2022-12-06] MEDS: vancomycin HCL 1,000 MG in 0.9 % Sodium Chloride 250 ML 270 MG IV ×2 (05:15→18:27)
[2022-12-06] MEDS: Omeprazole 40 MG CAPSULE.DR PO (06:18)
[2022-12-06] MEDS: Levothyroxine Sodium 50 MCG TABLET PO (06:18)
[2022-12-06 07:07] LABS: Anion Gap 14 (12-20); Blood Urea Nitrogen 11 mg/dL (9-16); Calcium 9.6 mg/dL (8.4-10.2); Carbon Dioxide 21 mmol/L (22-29); Chloride 109 mmol/L (96-108); Creatinine Clr Calc Pharmacy 89.9; Estimated Glomerular Filt Rate > 60; Glucose Random 85 mg/dL (60-115); Potassium 3.8 mmol/L (3.3-5.1); Sodium 140 mmol/L (135-145)
[2022-12-06 07:36] VITALS: BP 124/78; PULSE 72; RESP 20; TEMP 36.2; O2SAT 99
[2022-12-06] MEDS: Multivitamin TABLET 1 TAB PO (07:46)
[2022-12-06] MEDS: Cholecalciferol (Vitamin D3) 25 MCG TABLET 50 MCG PO (07:46)
[2022-12-06] MEDS: Ibuprofen 400 MG TABLET PO ×4 (07:48→20:54)
[2022-12-06] MEDS: 0.9 % Sodium Chloride Flush 3 ML SYRINGE IVFLUSH ×2 (07:48→20:56)
--- NOTE | 2022-12-06 09:07 | PM.PNORT ---
Subjective Subjective Date of Service: 12/06/22 Interval history: Postop day 3 status post: 1. I&D of left hand including mid palmar space. ?2. I&D of left index finger including flexor tendon? sheath ?3. I and D of left middle finger including flexor tendon sheath ?4. I and D of left ring finger including flexor tendon sheath at the A1 tammy No overnight events. He is resting comfortably in bed. He states he spoke with his plastic surgeon who encouraged him to stay at our hospital over the weekend and have another washout on Wednesday and if there is any further intervention that is recommended then he will continue the care i.e. amputation verses repair Physical Exam Vital Signs: Vital Signs: Last Vital Signs Temp 97.2 F 12/06/22 07:36 Pulse 72 12/06/22 07:36 Resp 20 12/06/22 07:36 BP 124/78 12/06/22 07:36 Pulse Ox 99 12/06/22 07:36 O2 Del Method Room Air 12/06/22 07:36 O2 Flow Rate 2.0 12/03/22 17:17 BMI result Body Mass Index 24.7 Const: General: cooperative, healthy appearing and no acute distress Resp: Effort & Inspection: normal respiratory effort and able to speak in complete sentences Cardio: Rate: regular rate Peripheral pulses: Peripheral pulses 2+ throughout GI: Palpation (GI): Soft to palpation Skin: General skin exam: no rashes or lesions noted Extrem: Other: Left hand has 5 iodoform drains that were pulled today. There is no active purulence drainage. Sensation is intact throughout the hand except for absence of sensation along the radial digital nerve of the middle finger and he has no sensation over the tips of the index middle and ring finger Procedures Date of Service Date of Service: 12/06/22 Progress Note: A&P Assessment and plan (1) Infection of left hand: Status: Acute Assessment and Plan: Dressing change was performed today. I encouraged elevation. His plastic surgeon would like him to work on gentle range of motion as tolerated. Continue antibiotics. The plan for right now is for him to remain in the hospital with antibiotics and to be re-evaluated on Wednesday for an I&D - I did explain to the patient he needs to be NPO after midnight on Wednesday If there is potential for amputation the patient would like to hold off on this and see his plastic surgeon to see if there is any way to salvage this. Time Spent With Patient Time: Total time managing care of this patient today ____ minutes. Quality Stroke Does the patient have a stroke diagnosis?: No VTE Prior VTE?: No VTE Risk Level:: Medical - moderate - high VTE Device Contraindication: N/A - Device Ordered VTE Drug Contraindication: Treatment Not Indicated
[2022-12-06 11:37] VITALS: BP 119/71; PULSE 69; RESP 20; TEMP 36.7; O2SAT 96
--- NOTE | 2022-12-06 11:38 | P.PNIM_ITS ---
Subjective Subjective Date of Service: 12/06/22 Interval History: Seen and evaluated this morning POD 3 pain under fair control Denies any fever or chills cultures still negative No other overnight events Review of Systems Review of Systems: Yes all other systems are reviewed and are negative Physical Exam Vital Signs: Vital Signs: Last Vital Signs Temp 97.2 F 12/06/22 07:36 Pulse 72 12/06/22 07:36 Resp 20 12/06/22 07:36 BP 124/78 12/06/22 07:36 Pulse Ox 99 12/06/22 07:36 O2 Del Method Room Air 12/06/22 07:36 O2 Flow Rate 2.0 12/03/22 17:17 BMI result Body Mass Index 24.7 Const: Other: Constitutional : Awake, interactive, not in distress Neck : Normal inspection, Supple Cardiovascular : RRR, no JVP, no lower extremity edema Respiratory : good bilateral air entry, no crackles, wheezes or rhonchi Gastrointestinal: soft, lax, Normal bowel sounds, Non tender Skin : Warm, Dry, Left hand in dressing Neurological : Alert & oriented x3, No focal deficit Objective Data Active Medications Acetaminophen (Acetaminophen 325 Mg Tablet) 650 mg PO Q6H PRN PRN Reason: Pain, Mild (Pain Scale 1-3) Last Admin: 12/04/22 17:37 Dose: 650 mg Documented By: KRISTEN Docusate Sodium (Docusate Sodium 100 Mg Capsule) 100 mg PO DAILY PRN PRN Reason: Constipation Fentanyl (Fentanyl Citrate/Pf 100 Mcg/2 Ml Vial) 50 mcg IVPUSH Q5M PRN; Protocol PRN Reason: Pain, Severe (Pain Scale 7-10) Last Admin: 12/03/22 16:30 Dose: 50 mcg Documented By: FRED Piperacillin Sod/Tazobactam (Sod 3.375 gm/ Sodium Chloride) 50 mls @ 100 mls/hr IV Q6H [facility] Last Infusion: 12/06/22 07:04 Dose: 0 mls/hr Documented By: ALEXX Vancomycin HCl 1,000 mg/ (Sodium Chloride) 270 mls @ 270 mls/hr IV Q12H [facility] Last Infusion: 12/06/22 06:25 Dose: 0 mls/hr Documented By: ROLANDO Ibuprofen (Ibuprofen 400 Mg Tablet) 400 mg PO QID [facility] Last Admin: 12/06/22 07:48 Dose: 400 mg Documented By: CHRISTINE Levothyroxine Sodium (Levothyroxine Sodium 50 Mcg Tablet) 50 mcg PO DAILY@0600 [facility] Last Admin: 12/06/22 06:18 Dose: 50 mcg Documented By: ROLANDO Multivitamins/Vitamin C (Multivitamin Tablet) 1 tab PO DAILY [facility] Last Admin: 12/06/22 07:46 Dose: 1 tab Documented By: CHRISTINE Omeprazole (Omeprazole 40 Mg Capsule.Dr) 40 mg PO DAILY@0630 [facility] Last Admin: 12/06/22 06:18 Dose: 40 mg Documented By: ROLANDO Ondansetron HCl (Ondansetron Hcl 4 Mg/2 Ml Vial) 4 mg IVPUSH Q8H PRN PRN Reason: Nausea and Vomiting Ondansetron HCl (Ondansetron Hcl 4 Mg/2 Ml Vial) 4 mg IVPUSH ONCE PRN PRN Reason: Nausea and Vomiting Oxycodone HCl (Oxycodone Hcl Immed Release 5 Mg Tablet) 5 mg PO ONCE PRN PRN Reason: Pain, Severe (Pain Scale 7-10) Pharmacy Consult (Consult Rx Perform Med Rec) 1 each MISCELLANE ONCE PRN PRN Reason: Consult order Pharmacy Consult (Consult Rx Vancomycin Dosing) 1 each MISCELLANE DAILY PRN PRN Reason: Consult order Sodium Chloride (0.9 % Sodium Chloride Flush 3 Ml Syringe) 3 ml IVFLUSH QSHIFT [facility] Last Admin: 12/06/22 07:48 Dose: 3 ml Documented By: CHRISTINE Vitamin D (Cholecalciferol (Vitamin D3) 25 Mcg Tablet) 50 mcg PO DAILY [facility] Last Admin: 12/06/22 07:46 Dose: 50 mcg Documented By: CHRISTINE Labs 12/05/22 05:28 12/06/22 05:46 Labs: Laboratory Results - last 24 hr 12/05/22 12/06/22 16:00 05:46 Anion Gap 14 Estim Creat Clear Calc 89.9 Estimated GFR > 60 Random Glucose 85 Calcium 9.6 Vancomycin Trough 12.7 Microbiology Microbiology Results: Microbiology 12/03/22 14:25 Gram Stain - Final Hand Left Routine Culture - Preliminary Culture in progress. Assessment and Plan (1) Infection of left hand: Status: Acute Plan Pt is a 67-year-old male with a PMH significant for hypothyroidism and prostatectomy who presents to the ED with?left hand redness, swelling, and purulent drainage since earlier in the week. Left hand cellulitis and abscess post surgery 11/15 POD 3 Continue vancomycin and Zosyn, started on 12/02/2022 Orthopedic team following with a plan for washout surgery on Wednesday Discussions with his primary surgical team by dr Sarah Simms NPO after midnight Follow wound cultures Follow Vanco trough Hypothyroidism Continue levothyroxine Full Code DVT Prophylaxis: Pneumatic boots Pt will require a hospitalization of overnight for treatment of?left hand cellulitis status post hand surgery with IV antibiotics and possible surgical intervention by Wednesday Time Spent With Patient Time: Total time managing care of this patient today ____ minutes. Quality Stroke Does the patient have a stroke diagnosis?: No VTE Prior VTE?: No VTE Risk Level:: Medical - moderate - high VTE Device Contraindication: N/A - Device Ordered VTE Drug Contraindication: Treatment Not Indicated
[2022-12-06 13:00] VITALS: O2SAT 99
[2022-12-06 15:51] VITALS: BP 125/68; PULSE 75; RESP 20; TEMP 36.8; O2SAT 97
[2022-12-06 16:26] LABS: Vancomycin Trough 12.2 mcg/mL (10.0-20.0)
--- NOTE | 2022-12-06 16:32 | HE.PHANOTE ---
Vancomycin Dosing level therapeutic at 12.2 today. Continue current regimen. next level 12/07 @ 1600. Reed HutchinsD
[2022-12-06 19:51] VITALS: BP 131/77; PULSE 77; RESP 20; TEMP 36.7; O2SAT 98
[2022-12-07] VITALS (12 sets, daily range): BP systolic 114–144; BP diastolic 60–78; PULSE 66–83; RESP 16–20; TEMP 36.1–36.9; O2SAT 92–98
[2022-12-07] MEDS: Piperacillin Sodium/Tazobactam 3.375 GM in 0.9 % Sodium Chloride 50 ML IV ×4 (00:01→17:42)
[2022-12-07] MEDS: vancomycin HCL 1,000 MG in 0.9 % Sodium Chloride 250 ML 270 MG IV ×2 (06:09→18:33)
[2022-12-07] MEDS: Levothyroxine Sodium 50 MCG TABLET PO (06:16)
[2022-12-07] MEDS: Omeprazole 40 MG CAPSULE.DR PO (06:19)
[2022-12-07 07:32] LABS: Creatinine Clr Calc Pharmacy 88.8; Estimated Glomerular Filt Rate > 60
--- NOTE | 2022-12-07 07:38 | PM.PNORT ---
Subjective Subjective Date of Service: 12/07/22 Interval history: Postop day 4 status post: 1. I&D of left hand including mid palmar space. ?2. I&D of left index finger including flexor tendon? sheath ?3. I and D of left middle finger including flexor tendon sheath ?4. I and D of left ring finger including flexor tendon sheath at the A1 tammy No overnight events. He is resting comfortably in bed. He states he spoke with his plastic surgeon who encouraged him to stay at our hospital over the weekend and have another washout on Wednesday and if there is any further intervention that is recommended then he will continue the care i.e. amputation verses repair Physical Exam Vital Signs: Vital Signs: Last Vital Signs Temp 96.9 F 12/07/22 07:15 Pulse 66 12/07/22 07:15 Resp 18 12/07/22 07:15 BP 123/70 12/07/22 07:15 Pulse Ox 96 12/07/22 07:15 O2 Del Method Room Air 12/07/22 07:15 O2 Flow Rate 2.0 12/03/22 17:17 BMI result Body Mass Index 24.7 Const: Other: Constitutional : Awake, interactive, not in distress Neck : Normal inspection, Supple Cardiovascular : RRR, no JVP, no lower extremity edema Respiratory : good bilateral air entry, no crackles, wheezes or rhonchi Gastrointestinal: soft, lax, Normal bowel sounds, Non tender Skin : Warm, Dry, Left hand in dressing Neurological : Alert & oriented x3, No focal deficit General: cooperative, healthy appearing and no acute distress Resp: Effort & Inspection: normal respiratory effort and able to speak in complete sentences Cardio: Rate: regular rate Peripheral pulses: Peripheral pulses 2+ throughout GI: Palpation (GI): Soft to palpation Skin: General skin exam: no rashes or lesions noted Extrem: Other: Left hand has 5 iodoform drains that were pulled today. There is no active purulence drainage. Sensation is intact throughout the hand except for absence of sensation along the radial digital nerve of the middle finger and he has no sensation over the tips of the index middle and ring finger Procedures Date of Service Date of Service: 12/07/22 Progress Note: A&P Assessment and plan (1) Infection of left hand: Status: Acute Assessment and Plan: Dressing change was performed today. I encouraged elevation. His plastic surgeon would like him to work on gentle range of motion as tolerated. Continue antibiotics. The plan for right now is for him to remain in the hospital with antibiotics - I did explain to the patient he needs to be NPO after midnight on Wednesday If there is potential for amputation the patient would like to hold off on this and see his plastic surgeon to see if there is any way to salvage this. Remain NPO and plan is to bring to the OR for another washout this afternoon Time Spent With Patient Time: Total time managing care of this patient today ____ minutes. Quality Stroke Does the patient have a stroke diagnosis?: No VTE Prior VTE?: No VTE Risk Level:: Medical - moderate - high VTE Device Contraindication: N/A - Device Ordered VTE Drug Contraindication: Treatment Not Indicated
[2022-12-07] MEDS: 0.9 % Sodium Chloride Flush 3 ML SYRINGE IVFLUSH ×3 (08:04→20:29)
--- NOTE | 2022-12-07 09:27 | MHC.SHP ---
Pre-Procedural Eval Section A Date of Service: 12/07/22 The patient is an INPATIENT: No Changes since office visit: No Cold of Flu in the past 2 weeks, No New Medical Problems, No Changes in Medication and No Patient answered all questions The History & Physical has been completed within 30 days and I have reviewed it.: Yes Section B Chief Complaint: Left Hand infection Allergies: Allergies Allergy/AdvReac Type Severity Reaction Status Date / Time No Known Allergies Allergy Verified 12/02/22 15:12 Plan I have reviewed the history and physical and performed a pertinent physical examination on my patient. No changes have occurred unless specified. Time Spent With Patient Time: Total time managing care of this patient today ____ minutes.
--- NOTE | 2022-12-07 09:28 | W.PM.OPN ---
Operative Note Operative Note Date of Service: 12/07/22 Narrative: Operative Note Narrative: Preop diagnosis:? ?left hand infection status post - I&D left hand infection - ? left index finger zone 2 flexor tendon repairs x2, ? microscopic repair of digital nerves using AxoGen? tubes x 2, ? microscopic repair of digital arteries times 2 -? left? middle finger zone 2 flexor tendon repairs x2,? ?microscopic repair of digital nerves using AxoGen? tubes x 2,? ?microscopic repair of digital arteries times 2? -? left? ring finger zone 2 flexor tendon repairs x2,? ?microscopic repair of digital nerves using AxoGen? tubes x 2,? ?microscopic repair of digital arteries times 2? Postop diagnosis:? Same Procedure:? ?1. I&D of left hand including mid palmar space. ?2. I&D of left index finger including flexor tendon? sheath ?3. I and D of left middle finger including flexor tendon sheath 4. I&D of left ring finger including flexor tendon sheath at A1 tammy and distal wound Surgeon:? Sarah Simms MD Anesthesia:? General Anesthesia Findings: ? -? purulence from mid palmar abscess and coming from flexor tendon sheaths of the index and middle fingers. -? Dehiscence and loss of soft tissue coverage over the flexor tendons of the index finger and middle finger at the middle phalanx levels -? cap refill to the tips of the index, middle and ring fingers at the beginning of the case and at the end of the case - ? possible minimally displaced fracture of the? distal head of the index finger proximal phalanx Implants: ? none Tourniquet time: 0 EBL:? 5.0 ml Specimen: ?repeat cultures taken of purulence of left index finger Drains: ? Iodoform drains x3 Complications:? None Disposition:? Brought to the recovery room in stable condition Plan:? ?-admit? to floor to continue IV antibiotics. ?-Adjust antibiotics based on cultures. Cultures have thus far grown out Pseudomonas. However, staph/strep cannot be ruled out as patient was already on vancomycin at time of first I and D and culture. ?-Wound check tomorrow and remove drains - patient desires transfer, likely to [facility] for continued care with his original surgeon for continued management and possible flap coverage of digits -? I spoke with the patient's original hand surgeon, Dr. Chase, regarding treatment and transfer.? We are happy to help in any way we can. Indications:? The patient is a? 67-year-old man with a bad left hand infection status post I&D 12/03/2022.? The patient is status post a table saw injury on 11/13/2022, that was taken to the operating room at an outside facility on 11/15/2022 for repair of zone 2 flexor tendon injuries x2, digital nerves x2 and microscopic repair of the digital arteries times 2, to 3 fingers: the left index finger, middle finger and ring finger.? .? The risks and benefits of operative treatment, including but not limited to risk of damage to blood vessels, nerves, tendons, infection, recurrence, persistent pain or numbness, incomplete resolution of preoperative symptoms, or need for further surgery were discussed with the patient and they wished to proceed with surgery. Procedure:? Once consent was obtained patient was brought back to the operating suite and placed in the operating table in a supine position.? ? The patient is on vancomycin already. Anesthesia was administered by the anesthesia team.? A tourniquet was applied to the proximal aspect of the ? Left upper extremity and the limb was prepped and draped in a standard surgical fashion.? Tourniquet was not inflated. The wounds over the volar surface of the index middle and ring fingers were carefully debrided of nonviable tissue. Cultures were taken from the index finger. Again we are seeing fibrinous exudate and some purulent drainage about the tendons. The tendons are exposed, as there has been full-thickness skin loss over the middle phalanx of the middle finger and over the middle phalanx and part of the proximal phalanx of the index finger. The wounds over the flexor tendon sheath at the A1 pulleys of the index middle and ring fingers were again opened. Copious irrigation of all wounds was performed with normal saline. An Angiocath and a 10 mL syringe were used to irrigate the flexor tendon sheaths of the index and middle fingers from proximal to distal. With regards to the ring finger I irrigated at the A1 tammy area of the flexor tendon sheath and then also at the wound more distally over the flexor tendon sheath at the D IP joint. The ring finger is less swollen and less worrisome for flexor tenosynovitis. There is a wound over the dorsal radial proximal phalanx level of the middle finger. This was also copiously irrigated and is in continuity with the digit's volar wound.. ? Iodoform drains were placed in each of the A1 tammy wounds to facilitate drainage. I placed a single suture in the wound at the distal aspect of the ring finger to allow for drainage but help facilitate coverage. Similarly, I placed a single suture in the wound near the A1 tammy of the middle finger that would allow for drainage, but facilitate later closure.. ? A median nerve block was performed by injecting some 0.5% plain ropivacaine at the carpal tunnel postop for pain control, and a sterile dressing was then placed then placed.? The patient appears to have tolerated the procedure well and with no complications.? ? Patient was noted to have cap refill to all digits at the end of the case. .
--- NOTE | 2022-12-07 10:11 | P.CONAN_ITS ---
HPI - Anesthesia Eval Consult details Narrative: for i and d [facility] Active Problems Active Problems: All Active Problems (Updated 12/03/22 @ 14:07 by Sraah Simms MD) Infection of left hand (Acute) Infection of left hand (Acute) Erectile dysfunction (Acute) Nocturia more than twice per night (Acute) Bladder outlet obstruction (Acute) Weak urinary stream (Acute) Past Medical History Medical History Bladder outlet obstruction COVID-19 vaccine series completed Hx of fracture of tibia Hypothyroid Nocturia Sciatic nerve pain Tinnitus of right ear Torn rotator cuff Weak urinary stream Family History Family history of problems with anesthesia: No Surgical History Surgical History Hx of cholecystectomy Hx of colonoscopy Hx of hernia repair Hx of total knee replacement History of Problems with Anesthesia: No Social History Social History Household Members: Spouse Housing: House Do you presently have visiting nurse or other home services: No Alcohol intake: current Alcohol intake frequency: holidays/special occasions only Alcohol type: beer Patient Tobacco Use Status: Former Tobacco user Quit Date: Second Hand Smoke Exposure: No service: No Meds Allergies Allergy/AdvReac Type Severity Reaction Status Date / Time No Known Allergies Allergy Verified 12/02/22 15:12 Active Medications: Current Medications Acetaminophen (Acetaminophen 325 Mg Tablet) 650 mg PO Q6H PRN PRN Reason: Pain, Mild (Pain Scale 1-3) Last Admin: 12/04/22 17:37 Dose: 650 mg Docusate Sodium (Docusate Sodium 100 Mg Capsule) 100 mg PO DAILY PRN PRN Reason: Constipation Fentanyl (Fentanyl Citrate/Pf 100 Mcg/2 Ml Vial) 50 mcg IVPUSH Q5M PRN; Protocol PRN Reason: Pain, Severe (Pain Scale 7-10) Last Admin: 12/03/22 16:30 Dose: 50 mcg Piperacillin Sod/Tazobactam (Sod 3.375 gm/ Sodium Chloride) 50 mls @ 100 mls/hr IV Q6H [facility] Last Infusion: 12/07/22 06:20 Dose: Infused Vancomycin HCl 1,000 mg/ (Sodium Chloride) 270 mls @ 270 mls/hr IV Q12H [facility] Last Infusion: 12/07/22 07:38 Dose: Infused Ibuprofen (Ibuprofen 400 Mg Tablet) 400 mg PO QID [facility] Last Admin: 12/07/22 08:00 Dose: Not Given Levothyroxine Sodium (Levothyroxine Sodium 50 Mcg Tablet) 50 mcg PO DAILY@0600 [facility] Last Admin: 12/07/22 06:16 Dose: 50 mcg Multivitamins/Vitamin C (Multivitamin Tablet) 1 tab PO DAILY [facility] Last Admin: 12/06/22 07:46 Dose: 1 tab Omeprazole (Omeprazole 40 Mg Capsule.Dr) 40 mg PO DAILY@0630 [facility] Last Admin: 12/07/22 06:19 Dose: 40 mg Ondansetron HCl (Ondansetron Hcl 4 Mg/2 Ml Vial) 4 mg IVPUSH Q8H PRN PRN Reason: Nausea and Vomiting Ondansetron HCl (Ondansetron Hcl 4 Mg/2 Ml Vial) 4 mg IVPUSH ONCE PRN PRN Reason: Nausea and Vomiting Oxycodone HCl (Oxycodone Hcl Immed Release 5 Mg Tablet) 5 mg PO ONCE PRN PRN Reason: Pain, Severe (Pain Scale 7-10) Pharmacy Consult (Consult Rx Perform Med Rec) 1 each MISCELLANE ONCE PRN PRN Reason: Consult order Pharmacy Consult (Consult Rx Vancomycin Dosing) 1 each MISCELLANE DAILY PRN PRN Reason: Consult order Sodium Chloride (0.9 % Sodium Chloride Flush 3 Ml Syringe) 3 ml IVFLUSH QSHIFT [facility] Last Admin: 12/07/22 08:04 Dose: 3 ml Vitamin D (Cholecalciferol (Vitamin D3) 25 Mcg Tablet) 50 mcg PO DAILY [facility] Last Admin: 12/07/22 08:01 Dose: Not Given Home Medications Medication Instructions Recorded Confirmed Last Taken Type Ginkgo 1 tab PO DAILY 04/22/21 12/02/22 Unknown History multivitamin 1 tab PO DAILY 04/22/21 12/02/22 Unknown History dtqqqcp-nmos-svgha-oreg-capryl 1 tab PO DAILY 04/22/21 12/02/22 Unknown History levothyroxine 50 mcg tablet 50 mcg PO DAILY 12/15/21 12/02/22 12/02/22 History cholecalciferol (vitamin D3) 50 50 mcg PO DAILY 12/02/22 12/02/22 Unknown History mcg (2,000 unit) capsule (Vitamin D3) ibuprofen 400 mg tablet 400 mg PO Q6H 12/02/22 12/02/22 12/02/22 History omega-3s 300 ac-yre-ywr-other 1 cap PO DAILY 12/02/22 12/02/22 Unknown History dpmft6l-ldey oil 1,000 mg capsule ([place]-3 Fish Oil) Exam Exam Date and Time: December 07, 2022 1011 Height,Weight and Vital Signs: Height 5 ft 10 in Weight 78.2 kg Last Vital Signs Temp 96.9 F 12/07/22 07:15 Pulse 66 12/07/22 07:15 Resp 18 12/07/22 07:15 BP 123/70 12/07/22 07:15 Pulse Ox 96 12/07/22 07:15 O2 Del Method Room Air 12/07/22 07:15 O2 Flow Rate 2.0 12/03/22 17:17 Pertinent Lab Results Pertinent Lab Results: Laboratory Tests 12/02/22 12/02/22 12/02/22 15:21 15:21 17:16 WBC 8.9 RBC 4.35 L Hgb 13.3 L Hct 39.6 L MCV 91.0 MCH 30.6 MCHC 33.6 RDW 11.9 Plt Count 450 H MPV 8.3 L Immature Gran % (Auto) 0.3 Neut % (Auto) 71.9 Lymph % (Auto) 17.7 L [place] % (Auto) 8.4 Eos % (Auto) 0.9 Baso % (Auto) 0.8 Lymph # (Auto) 1.6 [place] # (Auto) 0.8 Eos # (Auto) 0.1 Baso # (Auto) 0.1 Abs Immat Gran (auto) 0.03 Absolute Neuts (auto) 6.4 Absolute Nucleated RBC 0.000 Nucleated RBC % (auto) 0.0 ESR 79 H Sodium 137 Potassium 4.1 Chloride 103 Carbon Dioxide 24 Anion Gap 14 BUN 16 Creatinine 0.77 Estim Creat Clear Calc 93.4 Estimated GFR > 60 Random Glucose 91 Lactic Acid Calcium 9.9 C-Reactive Protein Vancomycin Trough Random Vancomycin 12/02/22 12/02/22 12/03/22 17:16 17:16 06:15 WBC 8.0 RBC 4.04 L Hgb 12.6 L Hct 37.0 L MCV 91.6 MCH 31.2 MCHC 34.1 RDW 11.9 Plt Count 381 MPV 8.9 L Immature Gran % (Auto) Neut % (Auto) Lymph % (Auto) [place] % (Auto) Eos % (Auto) Baso % (Auto) Lymph # (Auto) [place] # (Auto) Eos # (Auto) Baso # (Auto) Abs Immat Gran (auto) Absolute Neuts (auto) Absolute Nucleated RBC 0.000 Nucleated RBC % (auto) 0.0 ESR Sodium Potassium Chloride Carbon Dioxide Anion Gap BUN Creatinine Estim Creat Clear Calc Estimated GFR Random Glucose Lactic Acid 1.6 Calcium C-Reactive Protein 3.20 H Vancomycin Trough Random Vancomycin 12/03/22 12/03/22 12/04/22 06:15 06:15 05:59 WBC 6.7 RBC 3.73 L Hgb 11.4 L Hct 34.2 L MCV 91.7 MCH 30.6 MCHC 33.3 RDW 11.9 Plt Count 343 MPV 8.8 L Immature Gran % (Auto) Neut % (Auto) Lymph % (Auto) [place] % (Auto) Eos % (Auto) Baso % (Auto) Lymph # (Auto) [place] # (Auto) Eos # (Auto) Baso # (Auto) Abs Immat Gran (auto) Absolute Neuts (auto) Absolute Nucleated RBC 0.000 Nucleated RBC % (auto) 0.0 ESR Sodium 138 Potassium 4.3 Chloride 107 Carbon Dioxide 24 Anion Gap 11 L BUN 12 Creatinine 0.76 0.74 Estim Creat Clear Calc 94.7 97.2 Estimated GFR > 60 > 60 Random Glucose 91 Lactic Acid Calcium 9.2 D C-Reactive Protein Vancomycin Trough Random Vancomycin 12/04/22 12/04/22 12/04/22 05:59 05:59 16:06 WBC RBC Hgb Hct MCV MCH MCHC RDW Plt Count MPV Immature Gran % (Auto) Neut % (Auto) Lymph % (Auto) [place] % (Auto) Eos % (Auto) Baso % (Auto) Lymph # (Auto) [place] # (Auto) Eos # (Auto) Baso # (Auto) Abs Immat Gran (auto) Absolute Neuts (auto) Absolute Nucleated RBC Nucleated RBC % (auto) ESR Sodium 140 Potassium 4.0 Chloride 109 H Carbon Dioxide 23 Anion Gap 12 BUN 11 Creatinine 0.74 0.76 Estim Creat Clear Calc 97.2 94.7 Estimated GFR > 60 > 60 Random Glucose 93 Lactic Acid Calcium 9.0 C-Reactive Protein Vancomycin Trough Random Vancomycin 11.2 L 12/05/22 12/05/22 12/05/22 05:28 05:28 05:28 WBC 5.7 RBC 3.72 L Hgb 11.8 L Hct 34.7 L MCV 93.3 MCH 31.7 MCHC 34.0 RDW 12.0 Plt Count 326 MPV 9.0 L Immature Gran % (Auto) Neut % (Auto) Lymph % (Auto) [place] % (Auto) Eos % (Auto) Baso % (Auto) Lymph # (Auto) [place] # (Auto) Eos # (Auto) Baso # (Auto) Abs Immat Gran (auto) Absolute Neuts (auto) Absolute Nucleated RBC 0.000 Nucleated RBC % (auto) 0.0 ESR Sodium 141 Potassium 4.0 Chloride 108 Carbon Dioxide 25 Anion Gap 12 BUN 8 L Creatinine 0.75 0.75 Estim Creat Clear Calc 95.9 95.9 Estimated GFR > 60 > 60 Random Glucose 95 Lactic Acid Calcium 9.4 C-Reactive Protein Vancomycin Trough Random Vancomycin 12/05/22 12/06/22 12/06/22 16:00 05:46 16:01 WBC RBC Hgb Hct MCV MCH MCHC RDW Plt Count MPV Immature Gran % (Auto) Neut % (Auto) Lymph % (Auto) [place] % (Auto) Eos % (Auto) Baso % (Auto) Lymph # (Auto) [place] # (Auto) Eos # (Auto) Baso # (Auto) Abs Immat Gran (auto) Absolute Neuts (auto) Absolute Nucleated RBC Nucleated RBC % (auto) ESR Sodium 140 Potassium 3.8 Chloride 109 H Carbon Dioxide 21 L Anion Gap 14 BUN 11 Creatinine 0.80 Estim Creat Clear Calc 89.9 Estimated GFR > 60 Random Glucose 85 Lactic Acid Calcium 9.6 C-Reactive Protein Vancomycin Trough 12.7 12.2 Random Vancomycin 12/07/22 06:06 WBC RBC Hgb Hct MCV MCH MCHC RDW Plt Count MPV Immature Gran % (Auto) Neut % (Auto) Lymph % (Auto) [place] % (Auto) Eos % (Auto) Baso % (Auto) Lymph # (Auto) [place] # (Auto) Eos # (Auto) Baso # (Auto) Abs Immat Gran (auto) Absolute Neuts (auto) Absolute Nucleated RBC Nucleated RBC % (auto) ESR Sodium Potassium Chloride Carbon Dioxide Anion Gap BUN Creatinine 0.81 Estim Creat Clear Calc 88.8 Estimated GFR > 60 Random Glucose Lactic Acid Calcium C-Reactive Protein Vancomycin Trough Random Vancomycin Airway Mallampati Class: II TM Dist: >3cm Neck ROM: Full Heart: rrr Lungs: cta Assessment and Plan Assessment Anesthesia Assessment: Anesthesia Plan Discussed Final Anesthetic Review Family History of Problems with Anesthesia: No History of Problems with Anesthesia: No ASA Class: II Final Preanesthetic Review: No Changes in Pt Med Stat, Meds/Allgs Chart Reviewed, Consent Obtained/Reviewed and Anes Risks/Benef Reviewed Patient Risk: Low Procedure Risk: Low Anesthetic Plan Anesthetic Plan: GA Disposition: Standard PACU
--- NOTE | 2022-12-07 11:21 | P.PNIM_ITS ---
Subjective Subjective Date of Service: 12/07/22 Interval History: Seen and evaluated this morning POD 4 pain under fair control Denies any fever or chills Cultures still negative Plan for surgery today for wash out Review of Systems Review of Systems: Yes all other systems are reviewed and are negative Physical Exam Vital Signs: Vital Signs: Last Vital Signs Temp 96.9 F 12/07/22 07:15 Pulse 66 12/07/22 07:15 Resp 18 12/07/22 07:15 BP 123/70 12/07/22 07:15 Pulse Ox 96 12/07/22 07:15 O2 Del Method Room Air 12/07/22 07:15 O2 Flow Rate 2.0 12/03/22 17:17 BMI result Body Mass Index 24.7 Const: Other: Constitutional : Awake, interactive, not in distress Neck : Normal inspection, Supple Cardiovascular : RRR, no JVP, no lower extremity edema Respiratory : good bilateral air entry, no crackles, wheezes or rhonchi Gastrointestinal: soft, lax, Normal bowel sounds, Non tender Skin : Warm, Dry, Left hand in dressing with no clear bleeding or drainage Neurological : Alert & oriented x3, No focal deficit Objective Data Active Medications Acetaminophen (Acetaminophen 325 Mg Tablet) 650 mg PO Q6H PRN PRN Reason: Pain, Mild (Pain Scale 1-3) Last Admin: 12/04/22 17:37 Dose: 650 mg Documented By: KRISTEN Docusate Sodium (Docusate Sodium 100 Mg Capsule) 100 mg PO DAILY PRN PRN Reason: Constipation Fentanyl (Fentanyl Citrate/Pf 100 Mcg/2 Ml Vial) 50 mcg IVPUSH Q5M PRN; Protocol PRN Reason: Pain, Severe (Pain Scale 7-10) Last Admin: 12/03/22 16:30 Dose: 50 mcg Documented By: DANGELL Fentanyl (Fentanyl Citrate/Pf 100 Mcg/2 Ml Vial) 25 mcg IVPUSH Q5M PRN; Protocol PRN Reason: Pain, Moderate(Pain Scale 4-6) Piperacillin Sod/Tazobactam (Sod 3.375 gm/ Sodium Chloride) 50 mls @ 100 mls/hr IV Q6H [facility] Last Infusion: 12/07/22 06:20 Dose: 0 mls/hr Documented By: FIGUEROA Vancomycin HCl 1,000 mg/ (Sodium Chloride) 270 mls @ 270 mls/hr IV Q12H [facility] Last Infusion: 12/07/22 07:38 Dose: 0 mls/hr Documented By: FIGUEROA Ibuprofen (Ibuprofen 400 Mg Tablet) 400 mg PO QID [facility] Last Admin: 12/07/22 08:00 Dose: Not Given Documented By: SHAYLEE Non-Admin Reason: NPO Levothyroxine Sodium (Levothyroxine Sodium 50 Mcg Tablet) 50 mcg PO DAILY@0600 [facility] Last Admin: 12/07/22 06:16 Dose: 50 mcg Documented By: FIGUEROA Multivitamins/Vitamin C (Multivitamin Tablet) 1 tab PO DAILY [facility] Last Admin: 12/07/22 10:13 Dose: Not Given Documented By: SHAYLEE Non-Admin Reason: Off Unit: Surgery Omeprazole (Omeprazole 40 Mg Capsule.Dr) 40 mg PO DAILY@0630 [facility] Last Admin: 12/07/22 06:19 Dose: 40 mg Documented By: FIGUEROA Ondansetron HCl (Ondansetron Hcl 4 Mg/2 Ml Vial) 4 mg IVPUSH Q8H PRN PRN Reason: Nausea and Vomiting Ondansetron HCl (Ondansetron Hcl 4 Mg/2 Ml Vial) 4 mg IVPUSH ONCE PRN PRN Reason: Nausea and Vomiting Ondansetron HCl (Ondansetron Hcl 4 Mg/2 Ml Vial) 4 mg IVPUSH ONCE PRN PRN Reason: Nausea and Vomiting Oxycodone HCl (Oxycodone Hcl Immed Release 5 Mg Tablet) 5 mg PO ONCE PRN PRN Reason: Pain, Severe (Pain Scale 7-10) Oxycodone HCl (Oxycodone Hcl Immed Release 5 Mg Tablet) 5 mg PO ONCE PRN PRN Reason: Pain, Severe (Pain Scale 7-10) Pharmacy Consult (Consult Rx Perform Med Rec) 1 each MISCELLANE ONCE PRN PRN Reason: Consult order Pharmacy Consult (Consult Rx Vancomycin Dosing) 1 each MISCELLANE DAILY PRN PRN Reason: Consult order Sodium Chloride (0.9 % Sodium Chloride Flush 3 Ml Syringe) 3 ml IVFLUSH QSHIFT [facility] Last Admin: 12/07/22 08:04 Dose: 3 ml Documented By: SHAYLEE Vitamin D (Cholecalciferol (Vitamin D3) 25 Mcg Tablet) 50 mcg PO DAILY [facility] Last Admin: 12/07/22 08:01 Dose: Not Given Documented By: SHAYLEE Non-Admin Reason: NPO Labs 12/05/22 05:28 12/07/22 06:06 Labs: Laboratory Results - last 24 hr 12/06/22 12/07/22 16:01 06:06 Estim Creat Clear Calc 88.8 Estimated GFR > 60 Vancomycin Trough 12.2 Microbiology Microbiology Results: Microbiology 12/03/22 14:25 Gram Stain - Final Hand Left Routine Culture - Final Pseudomonas aeruginosa Assessment and Plan (1) Infection of left hand: Status: Acute Plan Pt is a 67-year-old male with a PMH significant for hypothyroidism and prostatectomy who presents to the ED with?left hand redness, swelling, and purulent drainage since earlier in the week. Left hand cellulitis and abscess post surgery 11/15 POD 4 Continue vancomycin and Zosyn, started on 12/02/2022 Orthopedic team following with a plan for washout surgery today Discussions with his primary surgical team by dr Sarah Simms wound cultures growing Pseudomonas DC Vanco ID consult pending Hypothyroidism Continue levothyroxine Full Code DVT Prophylaxis: Pneumatic boots Pt will require a hospitalization of overnight for treatment of?left hand cellulitis status post hand surgery with IV antibiotics and surgical intervention Time Spent With Patient Time: Total time managing care of this patient today ____ minutes. Quality Stroke Does the patient have a stroke diagnosis?: No VTE Prior VTE?: No VTE Risk Level:: Medical - moderate - high VTE Device Contraindication: N/A - Device Ordered VTE Drug Contraindication: Treatment Not Indicated
[2022-12-07] MEDS: Ibuprofen 400 MG TABLET PO ×3 (13:54→20:29)
--- NOTE | 2022-12-07 15:58 | W.PM.IDCN ---
History of Present Illness Data of Consult Service Date: 12/07/22 Requesting physician: Ashutosh Cantu Primary Care Provider: Mohamud Hearn MD [facility] Reason for consult: left hand infection He cut through left hand on 11/13. He had surgical repair on [facility] on 11/15. After this he had home therapy for hand and both patients and therapist according to him washed his wound out with tap water. He developed more redness last week and he was admitted. He has Pseudomonas sensitive to Levaquin in wound. Review of Systems Review of Systems: Yes all other systems are reviewed and are negative [facility] Past Medical History Medical History Bladder outlet obstruction COVID-19 vaccine series completed Hx of fracture of tibia Hypothyroid Nocturia Sciatic nerve pain Tinnitus of right ear Torn rotator cuff Weak urinary stream Family History Family history: reviewed and not pertinent Surgical History Surgical History Hx of cholecystectomy Hx of colonoscopy Hx of hernia repair Hx of total knee replacement Social History Social History Household Members: Spouse Housing: House Do you presently have visiting nurse or other home services: No Alcohol intake: current Alcohol intake frequency: holidays/special occasions only Alcohol type: beer Patient Tobacco Use Status: Former Tobacco user Quit Date: Second Hand Smoke Exposure: No service: No Meds Allergies Allergy/AdvReac Type Severity Reaction Status Date / Time No Known Allergies Allergy Verified 12/02/22 15:12 Active Medications: Current Medications Acetaminophen (Acetaminophen 325 Mg Tablet) 650 mg PO Q6H PRN PRN Reason: Pain, Mild (Pain Scale 1-3) Last Admin: 12/04/22 17:37 Dose: 650 mg Docusate Sodium (Docusate Sodium 100 Mg Capsule) 100 mg PO DAILY PRN PRN Reason: Constipation Fentanyl (Fentanyl Citrate/Pf 100 Mcg/2 Ml Vial) 50 mcg IVPUSH Q5M PRN; Protocol PRN Reason: Pain, Severe (Pain Scale 7-10) Last Admin: 12/03/22 16:30 Dose: 50 mcg Fentanyl (Fentanyl Citrate/Pf 100 Mcg/2 Ml Vial) 25 mcg IVPUSH Q5M PRN; Protocol PRN Reason: Pain, Moderate(Pain Scale 4-6) Piperacillin Sod/Tazobactam (Sod 3.375 gm/ Sodium Chloride) 50 mls @ 100 mls/hr IV Q6H [facility] Last Infusion: 12/07/22 14:37 Dose: Infused Ibuprofen (Ibuprofen 400 Mg Tablet) 400 mg PO QID [facility] Last Admin: 12/07/22 13:54 Dose: 400 mg Levothyroxine Sodium (Levothyroxine Sodium 50 Mcg Tablet) 50 mcg PO DAILY@0600 [facility] Last Admin: 12/07/22 06:16 Dose: 50 mcg Multivitamins/Vitamin C (Multivitamin Tablet) 1 tab PO DAILY [facility] Last Admin: 12/07/22 10:13 Dose: Not Given Omeprazole (Omeprazole 40 Mg Capsule.Dr) 40 mg PO DAILY@0630 [facility] Last Admin: 12/07/22 06:19 Dose: 40 mg Ondansetron HCl (Ondansetron Hcl 4 Mg/2 Ml Vial) 4 mg IVPUSH Q8H PRN PRN Reason: Nausea and Vomiting Ondansetron HCl (Ondansetron Hcl 4 Mg/2 Ml Vial) 4 mg IVPUSH ONCE PRN PRN Reason: Nausea and Vomiting Ondansetron HCl (Ondansetron Hcl 4 Mg/2 Ml Vial) 4 mg IVPUSH ONCE PRN PRN Reason: Nausea and Vomiting Oxycodone HCl (Oxycodone Hcl Immed Release 5 Mg Tablet) 5 mg PO ONCE PRN PRN Reason: Pain, Severe (Pain Scale 7-10) Oxycodone HCl (Oxycodone Hcl Immed Release 5 Mg Tablet) 5 mg PO ONCE PRN PRN Reason: Pain, Severe (Pain Scale 7-10) Pharmacy Consult (Consult Rx Perform Med Rec) 1 each MISCELLANE ONCE PRN PRN Reason: Consult order Pharmacy Consult (Consult Rx Vancomycin Dosing) 1 each MISCELLANE DAILY PRN PRN Reason: Consult order Sodium Chloride (0.9 % Sodium Chloride Flush 3 Ml Syringe) 3 ml IVFLUSH QSHIFT [facility] Last Admin: 12/07/22 08:04 Dose: 3 ml Vitamin D (Cholecalciferol (Vitamin D3) 25 Mcg Tablet) 50 mcg PO DAILY [facility] Last Admin: 12/07/22 08:01 Dose: Not Given Home Medications Medication Instructions Recorded Confirmed Last Taken Type Ginkgo 1 tab PO DAILY 04/22/21 12/02/22 Unknown History multivitamin 1 tab PO DAILY 04/22/21 12/02/22 Unknown History ltzvzxl-eacb-twbdd-oreg-capryl 1 tab PO DAILY 04/22/21 12/02/22 Unknown History levothyroxine 50 mcg tablet 50 mcg PO DAILY 12/15/21 12/02/22 12/02/22 History cholecalciferol (vitamin D3) 50 50 mcg PO DAILY 12/02/22 12/02/22 Unknown History mcg (2,000 unit) capsule (Vitamin D3) ibuprofen 400 mg tablet 400 mg PO Q6H 12/02/22 12/02/22 12/02/22 History omega-3s 300 gw-klr-ggq-other 1 cap PO DAILY 12/02/22 12/02/22 Unknown History meouy3a-bxbi oil 1,000 mg capsule ([place]-3 Fish Oil) Physical Exam Vital Signs: Vital Signs: Last Vital Signs Temp 98.4 F 12/07/22 15:35 Pulse 82 12/07/22 15:35 Resp 18 12/07/22 15:35 BP 114/60 12/07/22 15:35 Pulse Ox 95 12/07/22 15:35 O2 Del Method Room Air 12/07/22 15:35 O2 Flow Rate 2.0 12/07/22 12:09 BMI result Body Mass Index 24.7 Const: General: cooperative HEENT: Head: Yes normal to inspection Face and sinus: Yes normal facial exam Mouth: Normal oral and palatal mucosa present Teeth and gingiva: dentition normal Eyes: General: appearance normal, both eyes and all related structures Pupils: Equal, round and reactive pupils present Resp: Effort & Inspection: normal respiratory effort Cardio: Rate: regular rate Rhythm: regular rhythm GI: Palpation (GI): Soft to palpation and nontender : General: Yes no CVA tenderness Back/Spine/Pelvis: Back: no CVA tenderness Skin: General skin exam: no rashes or lesions noted Neuro: General: moves all extremities Cranial nerves: Yes Equal, round and reactive pupils present Extrem: Other: left hand wrapped Psych: Appearance: grossly normal Results Labs 12/05/22 05:28 12/07/22 06:06 Labs: BMP 12/07/22 06:06 Creatinine 0.81 Microbiology Microbiology Results: Microbiology 12/03/22 14:25 Hand Left Gram Stain - Final 12/03/22 14:25 Hand Left Routine Culture - Final Pseudomonas aeruginosa 12/07/22 11:44 Finger Gram Stain - Final 12/02/22 18:19 Blood - Venous Blood Culture - Preliminary No growth after 48 hours. 12/02/22 17:16 Blood - Venous Blood Culture - Preliminary No growth after 48 hours. Assessment and Plan (1) Infection of left hand: Status: Acute Pseudomonas infection hand. This is likely from tap water. Plan Po Levaquin for three weeks likely,750 mg daily. Time Spent With Patient Time: Total time managing care of this patient today ____ minutes.
--- NOTE | 2022-12-07 16:15 | MHC.CM.PN ---
EMR REVIEWED, CM MET W/HAND SURGEON TO DISCUSS DISPO, PER SURGEON PT DOES NOT WANT AMPUTATION AND ORIGINAL HAND/PLASTIC SURGEON DR. MATHEW DUMONT WOULD LIKE TO SEE PT AT [facility] TOMORROW 12/08 AT 11AM, CASE DISCUSSED W/HOSPITALIST WHO RECOMMENDS WE D/C PT [facility] AM TO MAKE APPT W/PT'S FOR TRANSPORT. CM SPOKE W/PT AND AT BEDSIDE, REPORTS THEY HAD JUST RECEIVED CALL FROM [facility] AND WAS GIVEN TIME OF 11AM, PLAN WILL BE FOR PT'S TO PICK PT UP AND LEAVE [facility] BY 0900 TOMORROW.
[2022-12-07 16:49] LABS: Vancomycin Trough 13.2 mcg/mL (10.0-20.0)
[2022-12-07] MEDS: Acetaminophen 325 MG TABLET 650 MG PO (20:29)
[2022-12-08] VITALS: BP 116/66; PULSE 73; RESP 20; TEMP 36.6; O2SAT 95
[2022-12-08] MEDS: Piperacillin Sodium/Tazobactam 3.375 GM in 0.9 % Sodium Chloride 50 ML IV ×2 (01:23→05:58)
[2022-12-08 03:28] VITALS: BP 115/64; PULSE 70; RESP 20; TEMP 36.2; O2SAT 97
[2022-12-08] MEDS: vancomycin HCL 1,000 MG in 0.9 % Sodium Chloride 250 ML 270 MG IV (06:44)
[2022-12-08 07:22] VITALS: BP 121/69; PULSE 69; RESP 20; TEMP 36.6; O2SAT 95
[2022-12-08 07:58] LABS: Anion Gap 13 (12-20); Blood Urea Nitrogen 13 mg/dL (9-16); Calcium 8.9 mg/dL (8.4-10.2); Carbon Dioxide 21 mmol/L (22-29); Chloride 109 mmol/L (96-108); Creatinine Clr Calc Pharmacy 92.2; Estimated Glomerular Filt Rate > 60; Glucose Random 87 mg/dL (60-115); Potassium 3.7 mmol/L (3.3-5.1); Sodium 139 mmol/L (135-145)
--- NOTE | 2022-12-08 08:17 | PM.DS ---
DS: Providers Provider Date of Service: 12/08/22 Date of admission: 12/02/22 19:12 Primary care physician: Mohamud Hearn MD Consults: 12/02/22 19:12 Consult to Orthopedics Routine Consulting [place] [facility] Reason for consultation: Left hand cellulitis s/p hand surgery on 11/15/2022 12/07/22 10:54 Consult to Infectious Diseases Stat Consulting Provider[place] [facility] [place] Reason for consultation: left hand infection DS: Diagnosis Discharge Diagnosis (1) Infection of left hand: Status: Acute DS: Summary Hospital Course Hospital Course: from initial hpi: 67-year-old male with a PMH significant for hypothyroidism and prostatectomy who presents to the ED with left hand redness, swelling, and purulent drainage since earlier in the week. Patient originally injured his hand on 11/13/2021 when he cut his hand on a table saw while working at his house on [facility]. Patient initially went to an urgent care clinic but was referred to [facility] where he had hand surgery on 11/15/[address] Binu Dumont ([phone]). Patient was then discharged home on 7 days of oral antibiotics. Patient states his hand was doing well up until the beginning of this week when his occupational therapist became worried about the swelling and redness. And continued to deteriorate and began seeping purulent discharge, which prompted his visit today. Patient states that his hand is slightly numb and painful, rates it a 3/10. Denies systemic symptoms: No fever, chills, nausea, vomiting. Denies chest pain/pressure, palpitations. No shortness of breath. Denies abdominal pain. In the ED patient was afebrile, and hemodynamically stable. Labs were significant for ESR 79, and C-reactive protein of 3.20. H&H stable at 13 0.3/39.6. No leukocytosis. Electrolytes WNL. Kidney function WNL. Left hand X-ray showed moderate to severe soft tissue swelling, most pronounced in the 2nd and 3rd digits with possible deformity in the proximal aspect of middle phalanx of 2nd digit, possibly suggestive of nondisplaced fracture. Emergency department spoke to patient's hand surgeon at [facility] who recommended icing the area than trying to express any purulence from the affected hand. Pt was treated with vanc and Zosyn and will be admitted to the hospital for treatment of left hand cellulitis with IV antibiotics and orthopedic consult.. hospital course: patient was admitted for left hand celluliti snad abscess. he was treated with vanc and zosyn. cultures grew pseudomonas (sensisitive to levofloxazin, zosyn, cefepime, and merem). underwent I and D of wounds with ortho. after discussion with patient's previous hand surgeon, plan to discharge with same day follow up at [facility]. for his hypothryoidism was continued on synthroid. Time Spent with Patient Time attestation: Total time managing care of this patient today ____ minutes. Discharge coordination time: Greater than 30 minutes Quality: Safe Use of Opioids Does Pt have an Active Cancer Diagnosis on the Problem List?: No Quality: Stroke Does the patient have a stroke diagnosis?: No Physical Exam Vital Signs: Vital Signs: Last Vital Signs Temp 97.9 F 12/08/22 07:22 Pulse 69 12/08/22 07:22 Resp 20 12/08/22 07:22 BP 121/69 12/08/22 07:22 Pulse Ox 95 12/08/22 07:22 O2 Del Method Room Air 12/08/22 07:22 O2 Flow Rate 2.0 12/07/22 12:09 BMI result Body Mass Index 24.7 Const: General: cooperative HEENT: Head: Yes normal to inspection Face and sinus: Yes normal facial exam Mouth: Normal oral and palatal mucosa present Teeth and gingiva: dentition normal Eyes: General: appearance normal, both eyes and all related structures Pupils: Equal, round and reactive pupils present Resp: Effort & Inspection: normal respiratory effort Cardio: Rate: regular rate Rhythm: regular rhythm GI: Palpation (GI): Soft to palpation and nontender : General: Yes no CVA tenderness Back/Spine/Pelvis: Back: no CVA tenderness Skin: General skin exam: no rashes or lesions noted Neuro: General: moves all extremities Cranial nerves: Yes Equal, round and reactive pupils present Extrem: Other: left hand wrapped Psych: Appearance: grossly normal DS: Data Data Completed and Pending Labs on day of discharge: Laboratory Results - last 24 hr 12/07/22 12/08/22 16:11 06:32 Sodium 139 Potassium 3.7 Chloride 109 H Carbon Dioxide 21 L Anion Gap 13 BUN 13 Creatinine 0.78 Estim Creat Clear Calc 92.2 Estimated GFR > 60 Random Glucose 87 Calcium 8.9 D Vancomycin Trough 13.2 Discharge Plan Discharge Anticipated Discharge Date/Time: 12/08/22 08:08 Patient Disposition: Home, Self-Care Discharge Diagnosis: left hand infections Referrals: [facility] [Other] - 1 Day (PLEASE PRESENT TO 11AM APPOINTMENT W/DR. MATHEW DUMONT ON 12/07/22. ) Mohamud Hearn MD [Primary Care Provider] - 1 Week Discharge Medications: New piperacillin-tazobactam 3.375 gram Recon Soln 3.375 g IV Q6H Qty: 0 0RF Continued multivitamin Tablet 1 tab PO DAILY Ginkgo 1 tab PO DAILY kdzybdw-bqzr-wahpm-oreg-capryl 1 tab PO DAILY ibuprofen 400 mg Tablet 400 mg PO Q6H cholecalciferol (vitamin D3) [Vitamin D3] 50 mcg (2,000 unit) Capsule 50 mcg PO DAILY [place]-3 Fish Oil 300-1,000 mg Capsule 1 cap PO DAILY levothyroxine 50 mcg tablet 50 mcg PO DAILY Discharge Orders: Discharge Order (Routine); Ordered 12/08/22 Ordered By: Oswald Desai Diet: Advance to usual diet Activity on Discharge: As tolerated Stand Alone Forms: Patient Portal Discharge page Care Plan Goals: recovery Health Concerns: left hand infection Plan of Treatment: follow up today at [facility] Assessment: see above
--- NOTE | 2022-12-08 08:44 | PC.NURSE ---
Pt discharged at 0835 IV removed cath intact. 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
--- NOTE | 2022-12-08 11:30 | HO.POSTANES ---
Post Anesthesia Evaluation Post Anesthesia Evaluation Date of Service: 12/08/22 Vital Signs: Vital Signs Temp Pulse Resp BP Pulse Ox O2 Del Method 12/08/22 07:22 97.9 F 69 20 121/69 95 Room Air 12/08/22 03:43 Venturi Mask 12/08/22 03:28 97.2 F 70 20 115/64 97 Room Air 12/08/22 00:00 97.8 F 73 20 116/66 95 Room Air Anesthesia: General Mental Status: Awake Pain Control: Satisfactory Nausea/Vomiting: None Hydration: Adequate Anesthesia-Related Issues: No Anes. Related Issues
== END 2022-12-08 08:40 | disposition short-term general hospital (02) | DRG 857 ==
LOC: HO.ED 18:17 → HO.EDOVER 19:25 → HO.IMC 20:05
PROVIDERS: Orthopaedic Surgery; Physician Assistant; Registered Nurse Emergency; Student in an Organized Health Care Education/Training Program; Admitting Provider Student in an Organized Health Care Education/Training Program; Emergency Provider Emergency Medicine Emergency Medical Services; PCP Internal Medicine; Visit Provider Internal Medicine
PROC: 0L980ZZ Drainage of Left Hand Tendon, Open Approach (ICD-10-PCS; principal; 2022-12-03 13:30)
DX: T81.49XA Infection following a procedure, other surgical site, initial encounter (principal); L02.512 Cutaneous abscess of left hand; L03.114 Cellulitis of left upper limb; E03.9 Hypothyroidism, unspecified; M65.042 Abscess of tendon sheath, left hand; S62.631A Displaced fracture of distal phalanx of left index finger, initial encounter for closed fracture; W29.8XXA Contact with other powered hand tools and household machinery, initial encounter; B96.5 Pseudomonas (aeruginosa) (mallei) (pseudomallei) as the cause of diseases classified elsewhere; Y83.8 Other surgical procedures as the cause of abnormal reaction of the patient, or of later complication, without mention of misadventure at the time of the procedure; Z87.891 Personal history of nicotine dependence; Z79.890 Hormone replacement therapy; Z79.899 Other long term (current) drug therapy
CPT/HCPCS: 36415; 73130; 80048; 80202; 82565; 83605; 85025; 85027; 85652; 86140; 87040; 87070; 87077; 87102; 87147; 87186; 87205; 99285; J0131; J1100; J1170; J2370; J2371; J2405; J2543; J2795; J3010; J3370

== ENCOUNTER → 2022-12-02 19:12 | Outpatient (BNV) | payer MEDICARE, SELFPAY | PROVIDERS: Admitting Provider Student in an Organized Health Care Education/Training Program; Emergency Provider Emergency Medicine Emergency Medical Services; PCP Internal Medicine; Visit Provider Internal Medicine | DX: L08.9 Local infection of the skin and subcutaneous tissue, unspecified (principal) | CPT/HCPCS: 99221 ==

== ENCOUNTER → 2022-12-02 19:12 | Outpatient (BNV) | payer MEDICARE, SELFPAY | PROVIDERS: Admitting Provider Student in an Organized Health Care Education/Training Program; Emergency Provider Emergency Medicine Emergency Medical Services; PCP Internal Medicine; Visit Provider Orthopaedic Surgery | DX: L08.9 Local infection of the skin and subcutaneous tissue, unspecified (principal); L03.012 Cellulitis of left finger; S61.211A Laceration without foreign body of left index finger without damage to nail, initial encounter; S61.213A Laceration without foreign body of left middle finger without damage to nail, initial encounter; S61.215A Laceration without foreign body of left ring finger without damage to nail, initial encounter; S66.121A Laceration of flexor muscle, fascia and tendon of left index finger at wrist and hand level, initial encounter; S66.123A Laceration of flexor muscle, fascia and tendon of left middle finger at wrist and hand level, initial encounter; S66.125A Laceration of flexor muscle, fascia and tendon of left ring finger at wrist and hand level, initial encounter | CPT/HCPCS: 11042; 26010; 26020; 26025; 99024; 99223; 99231; 99232 ==

== ENCOUNTER → 2022-12-02 19:12 | Outpatient (BNV) | payer MEDICARE, SELFPAY | PROVIDERS: Admitting Provider Student in an Organized Health Care Education/Training Program; Emergency Provider Emergency Medicine Emergency Medical Services; PCP Internal Medicine; Visit Provider Student in an Organized Health Care Education/Training Program | DX: L03.114 Cellulitis of left upper limb (principal) | CPT/HCPCS: 99223; 99232; 99233; 99239 ==

== ENCOUNTER 2022-12-16 11:23 | Outpatient (AMB) | payer MEDICARE, SELFPAY ==
--- NOTE | 2022-12-16 11:41 | A.OFFVIS_ITS ---
Intake Intake Visit Reasons: 1 year follow up PVR Intake Note: Patient is present for PVR/ Urology Med:None Antibiotic Allergy: None Blood Thinner: None PVR: 175 Allergies No Known Allergies Allergy (Verified 12/16/22 11:43) HPI HPI Comments History of Present Illness Details Michelet is a pleasant male. He is a patient of Dr. Hearn. he seen for the following urologic conditions - bladder outlet obstruction - urinary retention Mild elevated PVR Does not feel he emptied completely Significant improvement since preprocedure Continue to surveil PVR 175cc 08/13 0.6 Lower urinary tract symptom with UTI Follow-up appointment after GreenLight procedure Current visit is for - further symptom evaluation predominant obstructive Prior treatment treatment includes - alpha-barbara and finasteride - May 2021 GreenLight laser Prostate Symptom Score - 06/13 moderate Symptoms include - initial symptoms with weak stream, noc turia, incomplete bladder emptying Prior Prostate Score moderate PSA 11/11 - 1.4, 12/12 1.0, 11/13 0.6 Prostate volume US 08/11 81 cc, PVR 390, 11/11 PVR 300 Testing at next visit will include - see in 6 months with PSA PFSH Medical History Bladder outlet obstruction COVID-19 vaccine series completed Hx of fracture of tibia Hypothyroid Nocturia Sciatic nerve pain Tinnitus of right ear Torn rotator cuff Weak urinary stream Surgical History Hx of cholecystectomy Hx of colonoscopy Hx of hernia repair Hx of total knee replacement Social History Household Members: Spouse Housing: House Do you presently have visiting nurse or other home services: No Alcohol intake: current Alcohol intake frequency: holidays/special occasions only Alcohol type: beer Patient Tobacco Use Status: Former Tobacco user Quit Date: Second Hand Smoke Exposure: No service: No Review of Systems Const Denies chills and Denies fever(s) Card Reports no additional complaints and Denies syncope Resp Denies cough GI Denies abdominal pain and Denies heartburn Reports as per HPI and Denies change in libido Neuro Denies syncope Psych Denies change in libido Endo Denies change in libido Physical Exam Const General: cooperative, healthy appearing, comfortable and no acute distress Orientation/consciousness: patient oriented x3 HEENT Face and sinus: Yes normal facial exam Mouth: moist mucous membranes Neck Neck: Yes normal visual inspection, Yes full ROM and Yes trachea midline Chest Chest palpation & inspection: normal inspection of the chest Resp Effort & Inspection: normal respiratory effort, able to speak in complete sentences and no respiratory distress GI Inspection: Yes normal to inspection Back/Spine/Pelvis Cervical Spine: normal cervical lordosis Thoracic/Lumbar Spine: thoracic and lumbar spine normal to inspection Skin General skin exam: no rashes or lesions noted Neuro General: patient oriented x3, gait normal, tone normal and moves all extremities Extrem General: Yes normal to inspection and Yes capillary refill normal Office Procedures Post Void Residual Post Residual Void Post Void Residual (PVR): 175 [id number] Void Residual by ultrasound Results AMB Urinalysis, Automated UA Leukoctes 0 Cal/uL Last Edit by Maria Esther Chery [facility] on 12/16/22 11:50 UA Nitrite Negative Last Edit by Maria Esther Chery [facility] on 12/16/22 11:50 UA Urobilinogen 0.2 mg/dL Last Edit by Maria Esther Chery [facility] on 12/16/22 11:5 0 UA Protein 0 mg/dL Last Edit by Maria Esther Chery [facility] on 12/16/22 11:50 UA pH 6.0 Last Edit by Maria Esther Chery [facility] on 12/16/22 11:50 UA Blood 0 Zach/uL Last Edit by Maria Esther Chery [facility] on 12/16/22 11:50 UA Specific [place] 1.010 Last Edit by Maria Esther Chery [facility] on 12/16/22 11: 50 UA Ketone Negative Last Edit by Maria Esther Chery [facility] on 12/16/22 11:50 UA Bilirubin 0 mg/dL Last Edit by Maria Esther Chery [facility] on 12/16/22 11:50 UA Glucose 0 mg/dL Last Edit by Maria Esther Chery [facility] on 12/16/22 11:50 Results Reviewed Results Reviewed: Laboratory Last Values Urine pH (Auto) 6.0 12/16/22 11:43 Specific [place] (Auto) 1.010 12/16/22 11:43 Urine Protein (Auto) 0 mg/dL 12/16/22 11:43 Glucose (UA)(Auto) 0 mg/dL 12/16/22 11:43 Urine Ketones (Auto) Negative 12/16/22 11:43 Urine Blood (Auto) 0 Zach/uL 12/16/22 11:43 Urine Nitrite (Auto) Negative 12/16/22 11:43 Urine Bilirubin (Auto) 0 mg/dL 12/16/22 11:43 Urine Urobilinogen (Auto) 0.2 mg/dL 12/16/22 11:43 Leukocyte Esterase (Auto) 0 Cal/uL 12/16/22 11:43 Assessment & Plan Assessment & Plan (1) Erectile dysfunction: Code(s): N52.9 - Male erectile dysfunction, unspecified (2) Nocturia more than twice per night: Code(s): R35.1 - Nocturia (3) Bladder outlet obstruction: Code(s): N32.0 - Bladder-neck obstruction Plan Six month follow-up PVR Orders: Orders AMB Urinalysis Automated 12/16/22 Z13.9 - Encounter for screening, unspecified AMB Post Void Residual by ultrasound 12/16/22 R35.1 - Nocturia Patient Instructions: Imaging studies, laboratory and physical exam results were discussed and reviewed in detail. No major barriers to patient understanding were identified. An opportunity to ask questions regarding the treatment plan was provided. All questions were answered. The patient expressed understanding and agreement with the above treatment plan. The patient is aware they should contact our office by phone for worsening of their current condition or the appearance of new urologic symptoms. Compliance is encouraged with any medications and followup testing that is ordered. It is a privilege to participate in the urologic care of your patient. If you have any questions or concerns regarding treatment for the above conditions, or other urologic issues, please do not hesitate to contact me. The office telephone contact is [phone]. This note is constructed using voice recognition software. While every effort has been made to ensure accuracy cellophane bag machine operator errors may have been included. Yours sincerely, Dr Yared Ricci MD, [facility] - Urology Providers of Expert, Compassionate Care for the Genitourinary System Coding Level of Care Code Est Pt Level 3 (79637) Diagnoses Erectile dysfunction N52.9 Nocturia more than twice per night R35.1 Bladder outlet obstruction N32.0 CPT Codes Post Residual Void - PVR CPT Code: 99145-Vfkb Void Residual by ultrasound ([id number])
== END 2022-12-16 12:24 | disposition home or self-care (01) ==
PROVIDERS: Visit Provider Urology
DX: N52.9 Male erectile dysfunction, unspecified (principal); R35.1 Nocturia; N32.0 Bladder-neck obstruction
CPT/HCPCS: 99213

== ENCOUNTER → 2022-12-16 11:23 | Outpatient (BNVA) | payer MEDICARE, SELFPAY | PROVIDERS: Visit Provider Urology | DX: N52.9 Male erectile dysfunction, unspecified (principal); N32.0 Bladder-neck obstruction; R35.1 Nocturia | CPT/HCPCS: 51798; 99212 ==

== ENCOUNTER 2023-08-03 11:33 | Outpatient (AMB) | payer MEDICARE, SELFPAY ==
--- NOTE | 2023-08-03 11:50 | A.OFFVIS_ITS ---
Intake Intake Visit Reasons: 6m/PVR LVM reminder Intake Note: Patient presents today for a follow-up/PVR Meds- None Allergies to Antibiotic- No Known Allergies Blood Thinner- None Post Void Residual: 135ml Blood Bank Laboratory Technician Required: No Accompanied by: Self / Same As Patient Allergies No Known Allergies Allergy (Verified 08/03/23 11:58) HPI HPI Comments History of Present Illness Details Michelet is a pleasant male. He is a patient of Dr. Hearn. he seen for the following urologic conditions - bladder outlet obstruction - urinary retention Current PVR 135, prior PVR 175 Some improvement Continue surveillance Lower urinary tract symptom with UTI Follow-up appointment after GreenLight procedure Current visit is for - further symptom evaluation predominant obstructive Prior treatment treatment includes - alpha-barbara and finasteride - May 2021 GreenLight laser Prostate Symptom Score - 06/13 moderate Symptoms include - initial symptoms with weak stream, noc turia, incomplete bladder emptying Prior Prostate Score moderate PSA 11/11 - 1.4, 12/12 1.0, 11/13 0.6 Prostate volume US 08/11 81 cc, PVR 390, 11/11 PVR 300 Testing at next visit will include - see in 6 months with PSA PFSH Medical History Tinnitus of right ear Torn rotator cuff Sciatic nerve pain Hypothyroid COVID-19 vaccine series completed Hx of fracture of tibia Nocturia Bladder outlet obstruction Weak urinary stream Surgical History Hx of hernia repair Hx of colonoscopy Hx of total knee replacement Hx of cholecystectomy Social History Household Members: Spouse Housing: House Do you presently have visiting nurse or other home services: No Alcohol intake: current Alcohol intake frequency: holidays/special occasions only Alcohol type: beer Patient Tobacco Use Status: Former Tobacco user Quit Date: Second Hand Smoke Exposure: No service: No Review of Systems Const Denies chills and Denies fever(s) Card Reports no additional complaints and Denies syncope Resp Denies cough GI Denies abdominal pain and Denies heartburn Reports as per HPI and Denies change in libido Neuro Denies syncope Psych Denies change in libido Endo Denies change in libido Physical Exam Const General: cooperative, healthy appearing, comfortable and no acute distress Orientation/consciousness: patient oriented x3 HEENT Face and sinus: Yes normal facial exam Mouth: moist mucous membranes Neck Neck: Yes normal visual inspection, Yes full ROM and Yes trachea midline Chest Chest palpation & inspection: normal inspection of the chest Resp Effort & Inspection: normal respiratory effort, able to speak in complete sentences and no respiratory distress GI Inspection: Yes normal to inspection Back/Spine/Pelvis Cervical Spine: normal cervical lordosis Thoracic/Lumbar Spine: thoracic and lumbar spine normal to inspection Skin General skin exam: no rashes or lesions noted Neuro General: patient oriented x3, gait normal, tone normal and moves all extremities Extrem General: Yes normal to inspection and Yes capillary refill normal Office Procedures Post Void Residual Post Residual Void Post Void Residual (PVR): 135 [id number]-[id number] Void Residual by ultrasound Assessment & Plan Assessment & Plan (1) Erectile dysfunction: Code(s): N52.9 - Male erectile dysfunction, unspecified (2) Nocturia more than twice per night: Code(s): R35.1 - Nocturia (3) Bladder outlet obstruction: Code(s): N32.0 - Bladder-neck obstruction Plan Twelve month follow-up Orders: Orders AMB Post Void Residual by ultrasound 08/03/23 R33.9 - Retention of urine, unspecified Prostate Specific Antigen 364 Days N32.0 - Bladder-neck obstruction Patient Instructions: Imaging studies, laboratory and physical exam results were discussed and reviewed in detail. No major barriers to patient understanding were identified. An opportunity to ask questions regarding the treatment plan was provided. All questions were answered. The patient expressed understanding and agreement with the above treatment plan. The patient is aware they should contact our office by phone for worsening of their current condition or the appearance of new urologic symptoms. Compliance is encouraged with any medications and followup testing that is ordered. It is a privilege to participate in the urologic care of your patient. If you have any questions or concerns regarding treatment for the above conditions, or other urologic issues, please do not hesitate to contact me. The office telephone contact is [phone]. This note is constructed using voice recognition software. While every effort has been made to ensure accuracy assembler watch train errors may have been included. Yours sincerely, Dr Yared Ricci MD, [facility] - Urology Providers of Expert, Compassionate Care for the Genitourinary System Coding Level of Care Code Est Pt Level 3 (25079) Diagnoses Erectile dysfunction N52.9 Nocturia more than twice per night R35.1 Bladder outlet obstruction N32.0 CPT Codes Post Residual Void - PVR CPT Code: 84688-Whee Void Residual by ultrasound ([id number])
== END 2023-08-03 12:23 | disposition home or self-care (01) ==
PROVIDERS: PCP Internal Medicine; Visit Provider Urology
DX: N52.9 Male erectile dysfunction, unspecified (principal); R35.1 Nocturia; N32.0 Bladder-neck obstruction
CPT/HCPCS: 99213

== ENCOUNTER → 2023-08-03 11:33 | Outpatient (BNVA) | payer MEDICARE, SELFPAY | PROVIDERS: PCP Internal Medicine; Visit Provider Urology | DX: N52.9 Male erectile dysfunction, unspecified (principal); N32.0 Bladder-neck obstruction; R35.1 Nocturia | CPT/HCPCS: 51798; 99212 ==

== ENCOUNTER 2024-08-22 08:16 | Outpatient (REF) | payer MEDICARE, OTHER, SELFPAY ==
--- OUTSIDE RECORDS SUMMARY | 2024-08-22 08:34 | XMS_ITS | Data Portability ---
Author Organization [place] - [facility], Allergy Address [address] [address] Care Team Providers Care Info Print Press Operator Name Role Phone DONALD VELA Primary Care Provider [phone] Assessment No assessment recorded. Plan of Treatment Reminders Order Date Submit Date Provider Last Modified By Organization Details Last Modified Time Details Appointments Establish ed 30 2024 02:00P M DENVER Chatterjee MD Not available Not available Not available Lab None recorded. Referral None recorded. Procedures None recorded. Surgeries None recorded. Imaging None recorded. Medication Orders None recorded. Patient TargetsNo targets recorded. Patient InstructionsNo instructions recorded. Reason for Referral None Reported. Problems Name Problem SNOMED Code Status Onset Date Resolution Date Notes Provider Name and Address Organization Details Recorded Time Sensorine ural hearing loss of bilateral ears 339532419 Active 2021 Sensorine ural hearing loss, bilateral ; Note: Date Diagnosed : 09/18/2021 1:29 PM (H90.3) Not Available [facility] 4 02:31:38 Mass of neck 665435068 Active 2022 Localized swelling, mass and lump, neck; Note: Date Diagnosed : 09/24/2022 10:18 AM (R22.1) Not Available [facility] 4 02:31:44 Neck swelling 909746990 Active 2022 Localized swelling, mass and lump, neck; Note: Date Diagnosed : 09/24/2022 10:18 AM (R22.1) Not Available [facility] 4 02:31:44 Tinnitus of left ear 63995081810 06 Active 2021 Tinnitus, left ear; Note: Date Diagnosed : 09/18/2021 1:29 PM (H93.12) Not Available [facility] 4 02:31:38 Lipoma of head and/or neck 951109645 Active 2023 DENVER PETERSEN MD [address] [place] [address], [address] , [place] - [facility] 11:41:00 Problem Notes None recorded. Medical Equipment None Reported. Medications Name Sig Start Date Stop Date Status Note LastModified by Organization Details LastModified Time amoxicillin 500 mg capsule TAKE 4 CAPSULES 30-60 MINS BEFORE PROCEDURE active Not Available Not Available No t Available latanoprost 0.005 % eye drops INSTILL 1 DROP(S) IN THE RIGHT EYE BY OPHTHALMIC ROUTE DAILY AT BEDTIME active Not Available Not Available N ot Available acetaminophe n 325 mg tablet TAKE 2 TABLETS BY MOUTH EVERY 6 HOURS NEEDED FOR PAIN active Not Available Not Available No t Available levothyroxin e 50 mcg tablet active Not Available Not Available Not Available brimonidine 0.2 % eye drops INSTILL 1 DROP IN THE RIGHT EYE 2 TIMES PER DAY active Not Available Not Available No t Available dorzolamide- timolol (PF) 2 %-0.5 % eye drops in a dropperette INSTILL 1 DROP(S) IN THE RIGHT EYE BY OPHTHALMIC ROUTE 2 TIME(S) PER DAY active Not Available Not Available No t Available Vitals Date Recorded Body height Body mass index (BMI) Body weight Provider Name and Address Organization Details Last Updated DateTime 03/22/2024 180.34 cm 24 kg/m2 00829.89 g Zonia Roberts [place] - [facility] 03/22/2024 11:27:26 Social History None recorded. Functional Status None recorded. Mental Status None recorded. Family History Nothing Reported. Medical History No medical history recorded. Past Encounters Encounter ID Performer Location Encounter Start Date Encounter Closed Date Diagnosis/Indication Diagnosis SNOMED-CT Code Diagnosis ICD10 Code Diagnosis Note [id number] DENVER PETERSEN MD [facility] [address] [address] 03/22/2024 10:46:56 03/22/2024 11:47:03 Lipoma of head and/or neck 316318198 D17.0 stable. He prefers observatio n over surgery which we discussed again. Will reevaluate in 12 months. I asked him to call if it changes significan tly or becomes painful. Health Concerns Section Related Observation LastModified by Organization Detai ls LastModified Time None Recorded Concern Status LastModified by Organization Details LastModified Time None Recorded Advance Directives Directive None Recorded Payers Encounter Date Sequence Insurance Name Policy Number Policy Matos Covered Member ID Matos Member ID Guarantor Name 03/22/2024 1 [place]ICARE [place]: [employer] Michelet Salazar [id number] Michelet Salazar 03/22/2024 2 [facility] (MEDICARE SUPPLEMENT) [id number] Michelet Salazar [id number] Michelet Salazar Notes Date Note Type Note Provider Name and Address Organization Details Recorded Time 03/22/2024 text/html neck massHe has a history of a neck mass. It does not cause pain. He had an US 09/08 which showed a left para midline [id number] oval mass consistent with a lipoma. We obtained an USGFNA which was also consistent with a lipoma. He has not noted any interval changes. Last seen 1 year ago. DENVER PETERSEN MD [address] [place] [address], [place], [address], [facility] - [facility] 03/22/2024 11:54:41
--- OUTSIDE RECORDS SUMMARY | 2024-08-22 08:34 | XMS_ITS | Referral Summary ---
Author Organization [facility] Address [address] [place] [address] Care Team Providers Care Senior Clinician Name Role Phone Mohamud Hearn Primary Care Provider [phone] Allergies No known active allergies Medications levothyroxine (SYNTHROID, LEVOTHROID) 50 mcg tablet Take 50 mcg by mouth daily. Active multivitamin (Multiple Vitamins) tablet Take 1 tablet by mouth once a day. Active fish oil 340-1,000 mg capsule Take 1,000 mg by mouth once a day. Active cholecalciferol (VITAMIN D3) 2,000 unit capsule Take 1 capsule by mouth once a day. Active acetaminophen (TYLENOL) 325 mg tablet Take 2 tablets (650 mg total) by mouth every 6 hours as needed for pain. 30 tablet 1 02/03/2023 Active Active Problems Problem Noted Date Diagnosed Date Soft tissue infection 12/08/2022 Social History Tobacco Use Types Packs/Day Years Used Date Smoking Tobacco: Never Smokeless Tobacco: Never Tobacco Cessation:Counseling Given: Not Answered Alcohol Use Standard Drinks/Week Comments Yes 0 (1 standard drink = 0.6 oz pur e alcohol) 4/week Sex and Gender Information Value Date Recorded Sex Assigned at Not on file Legal Sex Male 2:50 PM EDT Gender Identity Not on file Sexual Orientation Not on file Last Filed Vital Signs Vital Sign Reading Time Taken Comments Blood Pressure 137/86 02/03/2023 2:29 PM EDT Pulse 66 02/03/2023 2:29 PM EDT Temperature 36.2 ??C (97.2 ??F) 02/03/2023 2:29 PM ED T Respiratory Rate 18 02/03/2023 2:29 PM EDT Oxygen Saturation 98% 02/03/2023 2:29 PM EDT Inhaled Oxygen Concentration - - Weight 77.6 kg (171 lb) 12/08/2022 2:52 PM EDT Height 177.8 cm (5' 10 ) 12/08/2022 2:52 PM EDT Body Mass Index 24.54 12/08/2022 2:52 PM EDT Plan of Treatment Not on file Medical Devices Implanted Type Area Public Relations Writer Device Identifier Shelf Expiration Date Model / Serial / Lot Graphix Prime [id number] - [id number] - [id number] Implanted:Qty: 1 on 12/10/2022 by Binu Chase MD at [facility] Implant Left: Hand [employer] 06/12/2024 [id number] / [id number] PRIME LYOPRESERVED PLACENTAL MEMBRANE TO LEFT MIDDLE FINGER Membrane Placenta Lyopreserved [id number] Grafix Pl Prime - [id number] - [id number] Implanted:Qty: 1 on 12/10/2022 by Binu Chase MD at [facility] Tissue Left: Hand [employer] 06/26/2024 [id number] / [id number] Insurance MEDICARE Advance Directives * Full Code (Latest Code Status on File) Date Activated Date Inactivated Comments 12/08/2022 11:25 PM 12/10/2022 6:57 PM Care Teams Senior Clinician Relationship Specialty Start Date End Date Mohamud Hearn PCP - General Internal Medicine 12/08/22
--- OUTSIDE RECORDS SUMMARY | 2024-08-22 08:35 | XMS_ITS | Clinical Summary ---
Author Organization [facility] Address [address] [place] [address] Care Team Providers Care Professor Of Special Education Name Role Phone Dhiraj Mohamud Eve Primary Care Provider [phone] Allergies No known active allergies Medications levothyroxine [...] 12/08/2022 2:52 PM EDT Plan of Treatment Health Maintenance Due Date Last Done Comments Cologuard 1955 Colon Cancer Screening 1955 Colonoscopy 1955 FOBT / Fit Test 1955 Sigmoidoscopy 1955 DTaP,Tdap,and Td Vaccines (1 - Tdap) 1975 Pneumococcal Vaccine: 50+ Years (2 of 2 - PPSV23) 05/27/2021 05/27/2020 COVID-19 Vaccine (3 - season) 2024 09/19/2020, 08/29/2020 Influenza Vaccine (#1) 2024 2, 03/26/2021, 02/15/2020, Additional history exists Alcohol/Substance Use Screening 05/24/2024 Health Care Proxy Review 05/24/2024 RSV Vaccine (60+ years old and patients) (1 - 1-dose 75+ series) 2028 Zoster Vaccines Completed 07/15/2022, 03/23/2022 Hepatitis B Vaccines Aged Out No long er eligible based on patient's age to complete this topic Medical Devices Implanted Type Area Patternmaker Device Identifier Shelf Expiration Date Model / Serial / Lot Graphix Prime [id number] - [id number] - [id number] Implanted:Qty: 1 on 12/10/2022 by Binu Chase MD at [facility] Implant Left: Hand [employer] 06/12/2024 [id number] / [id number] [address] PRIME LYOPRESERVED PLACENTAL MEMBRANE TO LEFT MIDDLE FINGER Membrane Placenta Lyopreserved [id number] Grafix Pl Prime - [id number] - [id number] Implanted:Qty: 1 on 12/10/2022 by Binu Chase MD at [facility] Tissue Left: Hand [employer] 06/26/2024 [id number] / [id number] Insurance [facility] MEDICARE Advance Directives * Full Code (Latest Code Status on File) Date Activated Date Inactivated Comments 12/08/2022 11:25 PM 12/10/2022 6:57 PM Care Teams Professor Of Special Education Relationship Specialty Start Date End Date Mohamud Hearn PCP - General Internal Medicine 12/08/22
[2024-08-22 10:18] LABS: Prostate Specific Antigen 0.74 ng/mL (<0.05-4.0)
== END 2024-08-22 08:17 | disposition home or self-care (01) ==
LOC: HO.LAB 08:16
PROVIDERS: PCP Internal Medicine; Visit Provider Urology
DX: N32.0 Bladder-neck obstruction (principal); Z12.5 Encounter for screening for malignant neoplasm of prostate
CPT/HCPCS: 36415; 84153

== ENCOUNTER 2024-08-24 10:58 | Outpatient (AMB) | payer MEDICARE, OTHER, SELFPAY ==
--- NOTE | 2024-08-24 11:04 | MHC.OFFVIS ---
Intake Visit Reasons: 1y/PSA/PVR Intake Note: Patient presents today for a follow-up/PVR Meds- None Allergies to Antibiotic- No Known Allergies Blood Thinner- None Post Void Residual: 135ml's TODAY'S PVR:32ML'S Beef Farmer Required: No Accompanied by: Self / Same As Patient Allergies No Known Allergies Allergy (Verified 08/24/24 11:05) HPI Comments Details: Michelet is a pleasant male. He is a patient of Dr. Hearn. he seen for the following urologic conditions - bladder outlet obstruction - urinary retention Current PVR down to 32 Continue good response from prior procedure a number of years ago Lower urinary tract symptom with UTI Follow-up appointment after GreenLight procedure Current visit is for - further symptom evaluation predominant obstructive Prior treatment treatment includes - alpha-barbara and finasteride - May 2021 GreenLight laser Prostate Symptom Score - 06/13 moderate Symptoms include - initial symptoms with weak stream, nocturia, incomplete bladder emptying Prior Prostate Score moderate PSA 11/11 - 1.4, 12/12 1.0, 11/13 0.6, 09/15 0.7 Prostate volume US 08/11 81 cc, PVR 390, 11/11 PVR 300, 08/14 PVR 135, 08/15 PVR 30 cc Testing at next visit will include - see in 6 months with PSA PFSH Medical History Tinnitus of right ear Torn rotator cuff Sciatic nerve pain Hypothyroid COVID-19 vaccine series completed Hx of fracture of tibia Nocturia Bladder outlet obstruction Weak urinary stream Surgical History Hx of hernia repair Hx of colonoscopy Hx of total knee replacement Hx of cholecystectomy Social History Household Members: Spouse Housing: House Do you presently have visiting nurse or other home services: No Alcohol intake: current Alcohol intake frequency: holidays/special occasions only Alcohol type: beer Patient Tobacco Use Status: Former Tobacco user Second Hand Smoke Exposure: No service: No Office Procedures Post Void Residual Post Residual Void Post Void Residual (PVR): 32 27899-Vipj Void Residual by ultrasound Results AMB Urinalysis, Automated UA Leukoctes 0 Cal/uL Last Edit by MELANY Rodriguez on 08/24/24 11:29 UA Nitrite Negative Last Edit by Darwin Collado [facility] on 08/24/24 11:29 UA Urobilinogen 0.2 mg/dL Last Edit by Darwin Coll[facility] on 08/24/24 11:29 UA Protein 0 mg/dL Last Edit by Darwin Collado [facility] on 08/24/24 11:29 UA pH 6.0 Last Edit by Darwin Collado [facility] on 08/24/24 11:29 UA Blood 0 Zach/uL Last Edit by Darwin Collado [facility] on 08/24/24 11:29 UA Specific [place] 1.015 Last Edit by Dariwn Collado [facility] on 08/24/24 11:29 UA Ketone Negative Last Edit by Darwin Collado [facility] on 08/24/24 11:29 UA Bilirubin 0 mg/dL Last Edit by Darwin Collado [facility] on 08/24/24 11:29 UA Glucose 0 mg/dL Last Edit by Darwin Collado [facility] on 08/24/24 11:29 Results Reviewed Results Reviewed: Laboratory Last Values Urine pH (Auto) 6.0 08/24/24 11:27 Specific [place] (Auto) 1.015 08/24/24 11:27 Urine Protein (Auto) 0 mg/dL 08/24/24 11:27 Glucose (UA)(Auto) 0 mg/dL 08/24/24 11:27 Urine Ketones (Auto) Negative 08/24/24 11:27 Urine Blood (Auto) 0 Zach/uL 08/24/24 11:27 Urine Nitrite (Auto) Negative 08/24/24 11:27 Urine Bilirubin (Auto) 0 mg/dL 08/24/24 11:27 Urine Urobilinogen (Auto) 0.2 mg/dL 08/24/24 11:27 Leukocyte Esterase (Auto) 0 Cal/uL 08/24/24 11:27 Assessment & Plan Assessment & Plan Orders: Orders AMB Urinalysis Automated Today Z13.9 - Encounter for screening, unspecified Coding CPT Codes Post Residual Void - PVR CPT Code: 65396-Xakt Void Residual by ultrasound ([id number])
--- OUTSIDE RECORDS SUMMARY | 2024-08-24 12:17 | XMS_ITS | Referral Summary ---
Author Organization [facility] Address [address] [place] [address] Care Team Providers Care Cattyman Name Role Phone Mohamud Hearn Primary Care Provider [phone] Allergies No known active allergies Medications levothyroxine [...] on file Medical Devices Implanted Type Area Human Factors Advisor Lead Device Identifier Shelf Expiration Date Model / Serial / Lot Graphix Prime [id number] - [id number] - [id number] Implanted:Qty: 1 on 12/10/2022 by Binu Chase MD at [facility] Implant Left: Hand [employer] 06/12/2024 [id number] / [id number] / [id number] [address] PRIME LYOPRESERVED PLACENTAL MEMBRANE TO LEFT MIDDLE FINGER Membrane Placenta Lyopreserved [id number] Grafix Pl Prime - [id number] - [id number] Implanted:Qty: 1 on 12/10/2022 by Binu Chase MD at [facility] Tissue Left: Hand [employer] 06/26/2024 [id number] / [id number] Insurance MEDICARE Advance Directives * Full Code (Latest Code Status on File) Date Activated Date Inactivated Comments 12/08/2022 11:25 PM 12/10/2022 6:57 PM Care Teams Cattyman Relationship Specialty Start Date End Date Mohamud Hearn PCP - General Internal Medicine 12/08/22
--- OUTSIDE RECORDS SUMMARY | 2024-08-24 12:17 | XMS_ITS | Data Portability ---
Author Organization [place] - [facility], Allergy Address [address] [address] Care Team Providers Care Line Supply Name Role Phone DONALD VELA Primary Care Provider Assessment No assessment recorded. Plan of Treatment [...] Sensorine ural hearing loss of bilateral ears 564881410 Active 2021 Sensorine ural hearing loss, bilateral ; Note: Date Diagnosed : 09/18/2021 1:29 PM (H90.3) Not Available [facility] 4 02:31:38 Mass of neck 110931666 Active 2022 Localized swelling, mass and lump, neck; Note: Date Diagnosed : 09/24/2022 10:18 AM (R22.1) Not Available [facility] 4 02:31:44 Neck swelling 251927449 Active 2022 Localized swelling, mass and lump, neck; Note: Date Diagnosed : 09/24/2022 10:18 AM (R22.1) Not Available [facility] 4 02:31:44 Tinnitus of left ear 03865119943 06 Active 2021 Tinnitus, left ear; Note: Date Diagnosed : 09/18/2021 1:29 PM (H93.12) Not Available [facility] 4 02:31:38 Lipoma of head and/or neck 273105792 Active 2023 DENVER PETERSEN MD [address] [place] [address], [id number] , [place] - [facility] 11:41:00 Problem Notes None recorded. Medical [...] Updated DateTime 03/22/2024 180.34 cm 24 kg/m2 22406.89 g Zonia Roberts [place] - [facility] 03/22/2024 11:27:26 Social History None recorded. Functional Status None recorded. Mental Status None recorded. Family History Nothing Reported. Medical History No medical history recorded. Past Encounters Encounter ID Performer Location Encounter Start Date Encounter Closed Date Diagnosis/Indication Diagnosis SNOMED-CT Code Diagnosis ICD10 Code Diagnosis Note [id number] DENVER PETERSEN MD [facility] [address] [address] 03/22/2024 10:46:56 03/22/2024 11:47:03 Lipoma of head and/or neck 984258481 D17.0 stable. He prefers observatio n over [...] ID Guarantor Name 03/22/2024 1 MEDICARE B-[place]: [employer] Michelet Salazar [id number] Michelet Salazar 03/22/2024 2 [facility] (MEDICARE SUPPLEMENT) [id number] Michelet Salazar [id number] Michelet Salazar Notes Date Note Type Note Provider Name and Address Organization Details Recorded Time 03/22/2024 text/html neck massHe has a history of a neck mass. It does not cause pain. He had an US 09/08 which showed a left para midline [id number] oval mass consistent with a lipoma. We obtained an USGFNA which was also consistent with a lipoma. He has not noted any interval changes. Last seen 1 year ago. DENVER PETERSEN MD [address] [place] [address], [place], [address], [facility] - [facility] 03/22/2024 11:54:41
--- OUTSIDE RECORDS SUMMARY | 2024-08-24 12:18 | XMS_ITS | Clinical Summary ---
Author Organization [facility] Address [address] [place] [address] Care Team Providers Care Credit Control Officer Name Role Phone Dhiraj Mohamud Eve Primary Care Provider Allergies No known active allergies Medications levothyroxine [...] Vaccine (3 - season) 2024 09/19/2020, 08/29/2020 Alcohol/Substance Use Screening 05/24/2024 Health Care Proxy Review 05/24/2024 Influenza Vaccine (Season Ended) 2025 03/09/2022, 03/26/2021, 02/15/2020, Additional history exists RSV Vaccine (60+ years old and patients) (1 - 1-dose 75+ series) 2028 Zoster Vaccines Completed 07/15/2022, 03/23/2022 Hepatitis B Vaccines Aged Out No long er eligible based on patient's age to complete this topic Medical Devices Implanted Type Area Dope House Operator Helper Device Identifier Shelf Expiration Date Model / Serial / Lot Graphix Prime [id number] - [id number] - [id number] Implanted:Qty: 1 on 12/10/2022 by Binu Chase MD at [facility] Implant Left: Hand [employer] 06/12/2024 [id number] / [id number] / [id number] [address] PRIME LYOPRESERVED PLACENTAL MEMBRANE TO LEFT MIDDLE FINGER Membrane Placenta Lyopreserved [id number] Grafix Pl Prime - [id number] - [id number] Implanted:Qty: 1 on 12/10/2022 by Binu Chase MD at [facility] Tissue Left: Hand [employer] 06/26/2024 [id number] / [id number] Insurance [facility] MEDICARE Advance Directives * Full Code (Latest Code Status on File) Date Activated Date Inactivated Comments 12/08/2022 11:25 PM 12/10/2022 6:57 PM Care Teams Credit Control Officer Relationship Specialty Start Date End Date Mohamud Hearn PCP - General Internal Medicine 12/08/22
== END 2024-08-24 12:11 | disposition home or self-care (01) ==
PROVIDERS: PCP Internal Medicine; Visit Provider Urology
DX: Z13.9 Encounter for screening, unspecified (principal)

== ENCOUNTER → 2024-08-24 10:58 | Outpatient (BNVA) | payer MEDICARE, OTHER, SELFPAY | PROVIDERS: PCP Internal Medicine; Visit Provider Urology | DX: N32.0 Bladder-neck obstruction (principal); R35.1 Nocturia; N52.9 Male erectile dysfunction, unspecified; R39.12 Poor urinary stream | CPT/HCPCS: 51798; 81003; 99212 ==